=== PATIENT | female | born 1970 | race Caucasian/White ===

== ENCOUNTER 2017-09-03 22:05 | Inpatient (IN) ==
[2017-09-03] MEDS ORDERED: ALBUTEROL 2.5 MG/3 ML NEB RESP TX STA (22:47)
[2017-09-03] MEDS ORDERED: methylPREDNISolone SOD SUC 125 MG/2 ML VIAL IV ONE (22:47)
[2017-09-03] MEDS ORDERED: methylPREDNISolone SOD SUC 125 MG/2 ML VIAL ONE (22:55)
[2017-09-03 23:19] LABS: Basophils # 0.1 10*3/uL (0.0-0.2); Basophils % 0.9 % (0.0-0.8); Eosinophils # 0.2 10*3/uL (0.0-0.87); Eosinophils % 2.5 % (0.00-10.9); Hematocrit 38.6 VOL% (35.7-47.0); Hemoglobin 12.1 GM/DL (12.0-16.0); Immature Granulocytes % 0.5 %; Immature Granulocytes Absolute 0.04 #; Lymphocytes # 1.5 10*3/uL (1.4-4.0); Lymphocytes % 19.3 % (21.3-54.2); Mean Corpuscular HGB Conc 31.3 GM/DL (32-36); Mean Corpuscular Hemoglobin 30 PG (27-34); Mean Corpuscular Volume 94.1 FL (87-102); Monocytes # 0.7 10*3/uL (0.11-0.8); Monocytes % 8.8 % (1.7-12.7); Neutrophils # 5.1 10*3/uL (1.4-7.4); Platelet Count 303 T/CUMM (130-400); Red Cell Distribution Width 13.6 % (9.3-17.3); White Blood Count 7.5 T/CUMM (4-12)
[2017-09-03 23:38] LABS: Calcium 8.3 MG/DL (8.5-10.1); Osmolality,Calculated 276.4 MOS/KG (273-304)
[2017-09-03 23:43] LABS: Troponin I Only 0.069 NG/ML (0.00-0.045)
[2017-09-04] MEDS ORDERED: ALBUTEROL/IPRATROPIUM 3 ML NEB RESP TX PRN (00:54)
[2017-09-04] MEDS ORDERED: ALBUTEROL 2.5 MG/3 ML NEB RESP TX PRN (01:04)
[2017-09-04] MEDS ORDERED: ONDANSETRON 4 MG/2 ML VIAL IV PRN (01:05)
[2017-09-04] MEDS ORDERED: ACETAMINOPHEN 325 MG TABLET PO PRN (01:05)
[2017-09-04] MEDS ORDERED: GLUCAGON 1 MG VIAL IM PRN (01:05)
[2017-09-04] MEDS ORDERED: DEXTROSE 50% 25 GM/50 ML VIAL IV PRN (01:05)
[2017-09-04] MEDS ORDERED: methylPREDNISolone SOD SUC 40 MG/1 ML VIAL IV SCH (01:30)
[2017-09-04] MEDS: ALBUTEROL/IPRATROPIUM 3 ML NEB RESP TX SCH ×4 (02:01→19:11)
[2017-09-04] MEDS: LEVOFLOXACIN INJ 750 MG in PREMIX 1 EACH IV SCH (03:06)
[2017-09-04] MEDS: ENOXAPARIN 40 MG/0.4 ML SYRINGE SUBCUT SCH ×2 (03:06→21:39)
[2017-09-04] MEDS ORDERED: NITROGLYCERIN SL 0.4 MG TABLET SL PRN (03:14)
[2017-09-04 04:56] LABS: Apearance,Urine CLEAR (Clear); Bilirubin,Urine Negative (Negative); Blood, Urine Negative (Negative); Glucose,Urine (UA) Negative (Negative); Ketones,Urine Negative (Negative); Mucus,Urine Occasional /LPF (Occasional); Nitrite,Urine Negative (Negative); Protein,Urine Negative; Squamous Epithelial Cell,Urine Occasional /HPF (0-10); Urine Color Straw (Yellow); Urine Specific Gravity 1.003 (1.001-1.035); Urine Urobilinogen < 2.0 EU/DL (0.2-1.0); WBC,Urine <1 /HPF (0-6)
[2017-09-04] MEDS: methylPREDNISolone SOD SUC 40 MG/1 ML VIAL IV SCH ×2 (06:49→17:00)
[2017-09-04 07:06] LABS: Basophils % 0.8 % (0.0-0.8); Hemoglobin 12.3 GM/DL (12.0-16.0); Immature Granulocytes % 0.6 %; Immature Granulocytes Absolute 0.03 #; Lymphocytes # 0.5 10*3/uL (1.4-4.0); Lymphocytes % 9.3 % (21.3-54.2); Mean Corpuscular HGB Conc 32.4 GM/DL (32-36); Mean Corpuscular Hemoglobin 29 PG (27-34); Mean Corpuscular Volume 90.9 FL (87-102); Mean Platelet Volume 10.7 FL (9.6-12.0); Monocytes # 0.1 10*3/uL (0.11-0.8); Monocytes % 1.1 % (1.7-12.7); Neutrophils # 4.7 10*3/uL (1.4-7.4); Neutrophils % 88.2 % (38.7-73.9); Platelet Count 299 T/CUMM (130-400); Red Blood Count 4.18 MC/CUMM (3.8-5.5); Red Cell Distribution Width 13.6 % (9.3-17.3); White Blood Count 5.3 T/CUMM (4-12)
[2017-09-04 07:37] LABS: Calcium 8.5 MG/DL (8.5-10.1)
[2017-09-04 07:38] LABS: Osmolality,Calculated 280.7 MOS/KG (273-304); Potassium 4.2 MMOL/L (3.5-5.1)
[2017-09-04] MEDS: FENOFIBRATE 145 MG TABLET PO SCH (09:01)
[2017-09-04] MEDS: FUROSEMIDE 20 MG TABLET PO SCH ×2 (09:01→16:51)
[2017-09-04] MEDS: OMEGA 3 ACID ETHYL ESTERS 1 GM CAPSULE PO SCH ×2 (09:01→21:38)
[2017-09-04] MEDS: hydrALAZINE 10 MG TABLET PO SCH ×4 (09:01→21:39)
[2017-09-04] MEDS: PANTOPRAZOLE 40 MG TABLET PO SCH (09:01)
[2017-09-04] MEDS: CALCIUM (CARBONATE)/VITAMIN D 500 MG-200 UNIT TABLET PO SCH (09:01)
[2017-09-04] MEDS: ASPIRIN CHEW 81 MG TABLET PO SCH (09:01)
[2017-09-04] MEDS: CHLORTHALIDONE 25 MG TABLET PO SCH (09:01)
[2017-09-04] MEDS: amLODIPine 5 MG TABLET PO SCH (09:01)
[2017-09-04] MEDS: ALPRAZolam 0.5 MG TABLET PO SCH (09:01)
[2017-09-04] MEDS: GLIMEPIRIDE 4 MG TABLET PO SCH (09:01)
[2017-09-04] MEDS: INSULIN LISPRO 100 UNIT/ML SUBCUT SCH ×4 (09:02→21:39)
[2017-09-04] MEDS ORDERED: ZALEPLON 5 MG CAPSULE PO PRN (11:24)
[2017-09-04] MEDS: NICOTINE 21 MG/24 HR PATCH TRANSDERM SCH ×2 (21:39→22:51)
[2017-09-05] MEDS: ALBUTEROL/IPRATROPIUM 3 ML NEB RESP TX SCH ×4 (00:01→20:10)
[2017-09-05] MEDS: methylPREDNISolone SOD SUC 40 MG/1 ML VIAL IV SCH ×3 (01:28→21:15)
[2017-09-05] MEDS: LEVOFLOXACIN INJ 750 MG in PREMIX 1 EACH IV SCH (04:54)
[2017-09-05] MEDS: INSULIN LISPRO 100 UNIT/ML SUBCUT SCH ×4 (09:14→20:47)
[2017-09-05] MEDS: FUROSEMIDE 20 MG TABLET PO SCH ×2 (09:15→17:08)
[2017-09-05] MEDS: FENOFIBRATE 145 MG TABLET PO SCH (09:15)
[2017-09-05] MEDS: ASPIRIN CHEW 81 MG TABLET PO SCH (09:15)
[2017-09-05] MEDS: OMEGA 3 ACID ETHYL ESTERS 1 GM CAPSULE PO SCH ×2 (09:15→20:47)
[2017-09-05] MEDS: NICOTINE 21 MG/24 HR PATCH TRANSDERM SCH (09:15)
[2017-09-05] MEDS: GLIMEPIRIDE 4 MG TABLET PO SCH (09:15)
[2017-09-05] MEDS: amLODIPine 5 MG TABLET PO SCH (09:15)
[2017-09-05] MEDS: CALCIUM (CARBONATE)/VITAMIN D 500 MG-200 UNIT TABLET PO SCH (09:15)
[2017-09-05] MEDS: CHLORTHALIDONE 25 MG TABLET PO SCH (09:15)
[2017-09-05] MEDS: ALPRAZolam 0.5 MG TABLET PO SCH (09:15)
[2017-09-05] MEDS: hydrALAZINE 10 MG TABLET PO SCH ×4 (09:15→20:47)
[2017-09-05] MEDS: PANTOPRAZOLE 40 MG TABLET PO SCH (09:15)
[2017-09-05] MEDS: ENOXAPARIN 40 MG/0.4 ML SYRINGE SUBCUT SCH (20:47)
[2017-09-06] MEDS: ALBUTEROL/IPRATROPIUM 3 ML NEB RESP TX SCH ×4 (00:40→21:40)
[2017-09-06] MEDS: NICOTINE 21 MG/24 HR PATCH TRANSDERM SCH ×2 (09:12→15:19)
[2017-09-06] MEDS: INSULIN LISPRO 100 UNIT/ML SUBCUT SCH ×4 (09:12→22:09)
[2017-09-06] MEDS: OMEGA 3 ACID ETHYL ESTERS 1 GM CAPSULE PO SCH ×2 (09:12→22:09)
[2017-09-06] MEDS: LEVOFLOXACIN 750 MG TABLET PO SCH (09:12)
[2017-09-06] MEDS: ASPIRIN CHEW 81 MG TABLET PO SCH (09:13)
[2017-09-06] MEDS: GLIMEPIRIDE 4 MG TABLET PO SCH (09:13)
[2017-09-06] MEDS: FENOFIBRATE 145 MG TABLET PO SCH (09:13)
[2017-09-06] MEDS: amLODIPine 5 MG TABLET PO SCH (09:13)
[2017-09-06] MEDS: FUROSEMIDE 20 MG TABLET PO SCH ×2 (09:13→16:44)
[2017-09-06] MEDS: PANTOPRAZOLE 40 MG TABLET PO SCH (09:13)
[2017-09-06] MEDS: CHLORTHALIDONE 25 MG TABLET PO SCH (09:13)
[2017-09-06] MEDS: CALCIUM (CARBONATE)/VITAMIN D 500 MG-200 UNIT TABLET PO SCH (09:13)
[2017-09-06] MEDS: ALPRAZolam 0.5 MG TABLET PO SCH (09:13)
[2017-09-06] MEDS: methylPREDNISolone SOD SUC 40 MG/1 ML VIAL IV SCH ×2 (09:13→22:10)
[2017-09-06] MEDS: hydrALAZINE 10 MG TABLET PO SCH ×4 (09:13→22:10)
[2017-09-06] MEDS ORDERED: BENZONATATE 100 MG CAPSULE PO PRN (16:42)
[2017-09-06] MEDS: ENOXAPARIN 40 MG/0.4 ML SYRINGE SUBCUT SCH (22:10)
[2017-09-07] MEDS: ALBUTEROL/IPRATROPIUM 3 ML NEB RESP TX SCH ×3 (02:57→12:00)
[2017-09-07 08:12] VITALS: BP 155/90
[2017-09-07] MEDS: INSULIN LISPRO 100 UNIT/ML SUBCUT SCH ×2 (08:32→12:00)
[2017-09-07] MEDS: ASPIRIN CHEW 81 MG TABLET PO SCH (08:34)
[2017-09-07] MEDS: hydrALAZINE 10 MG TABLET PO SCH ×2 (08:35→12:00)
[2017-09-07] MEDS: PANTOPRAZOLE 40 MG TABLET PO SCH (08:35)
[2017-09-07] MEDS: FUROSEMIDE 20 MG TABLET PO SCH (08:35)
[2017-09-07] MEDS: ALPRAZolam 0.5 MG TABLET PO SCH (08:35)
[2017-09-07] MEDS: amLODIPine 5 MG TABLET PO SCH (08:35)
[2017-09-07] MEDS: LEVOFLOXACIN 750 MG TABLET PO SCH (08:35)
[2017-09-07] MEDS: CHLORTHALIDONE 25 MG TABLET PO SCH (08:35)
[2017-09-07] MEDS: CALCIUM (CARBONATE)/VITAMIN D 500 MG-200 UNIT TABLET PO SCH (08:35)
[2017-09-07] MEDS: FENOFIBRATE 145 MG TABLET PO SCH (08:35)
[2017-09-07] MEDS: GLIMEPIRIDE 4 MG TABLET PO SCH (08:35)
[2017-09-07] MEDS: OMEGA 3 ACID ETHYL ESTERS 1 GM CAPSULE PO SCH (08:35)
[2017-09-07] MEDS: NICOTINE 21 MG/24 HR PATCH TRANSDERM SCH (08:44)
[2017-09-07] MEDS ORDERED: predniSONE 20 MG TABLET PO SCH (09:00)
== END 2017-09-07 13:12 | disposition home or self-care (01) | DRG 190 ==
LOC: EDUNIT# → EDBD → N.ED 22:05 → SUATTDRO 09-04 00:53 → N.EDINP 09-04 00:53 → N.2E 09-04 01:16
PROVIDERS: ADMIT Family Medicine; ATTEND Internal Medicine

== ENCOUNTER 2018-01-01 09:10 | Inpatient (IN) ==
[2018-01-01 09:41] LABS: Basophils # 0.1 10*3/uL (0.0-0.2); Basophils % 0.9 % (0.0-0.8); Eosinophils # 0.4 10*3/uL (0.0-0.87); Eosinophils % 3.6 % (0.00-10.9); Hematocrit 38.9 VOL% (35.7-47.0); Hemoglobin 12.1 GM/DL (12.0-16.0); Immature Granulocytes % 0.4 %; Immature Granulocytes Absolute 0.04 #; Lymphocytes # 3.1 10*3/uL (1.4-4.0); Lymphocytes % 27.4 % (21.3-54.2); Mean Corpuscular HGB Conc 31.1 GM/DL (32-36); Mean Corpuscular Hemoglobin 27 PG (27-34); Monocytes # 0.7 10*3/uL (0.11-0.8); Monocytes % 6.3 % (1.7-12.7); Neutrophils % 61.4 % (38.7-73.9); Platelet Count 327 T/CUMM (130-400); Red Blood Count 4.42 MC/CUMM (3.8-5.5); Red Cell Distribution Width 15.5 % (9.3-17.3); White Blood Count 11.4 T/CUMM (4-12)
[2018-01-01 09:51] LABS: PT Patient Result 10.4 SECS; Partial Thromboplastin Time 23.7 SECS (0-40)
[2018-01-01 10:19] LABS: Alanine Aminotransferase 23 U/L (13-56); Albumin 2.9 G/DL (3.4-5.0); Alkaline Phosphatase 75 U/L (45-117); Aspartate Amino Transferase 13 U/L (0-37); Bilirubin,Total < 0.39 MG/DL (0.2-1.0); Blood Urea Nitrogen 10 MG/DL (7-18); Calcium 8.5 MG/DL (8.5-10.1); Glucose 191 MG/DL (74-106); Potassium 3.6 MMOL/L (3.5-5.1); Sodium 143 MMOL/L (136-145); Total Protein 6.7 G/DL (6.4-8.3)
[2018-01-01 10:21] LABS: Troponin I Only 0.091 NG/ML (0.00-0.045)
[2018-01-01] MEDS ORDERED: FUROSEMIDE 40 MG/4 ML VIAL IV STA (11:23)
[2018-01-01] MEDS ORDERED: DOCUSATE SODIUM 100 MG CAPSULE PO PRN (12:32)
[2018-01-01] MEDS ORDERED: NICOTINE 21 MG/24 HR PATCH TRANSDERM PRN (12:32)
[2018-01-01] MEDS ORDERED: NITROGLYCERIN SL 0.4 MG TABLET SL PRN (12:37)
[2018-01-01] MEDS ORDERED: MAGNESIUM SULF RIDER 2 GM in PREMIX 1 EACH IV PRN (12:39)
[2018-01-01] MEDS ORDERED: POTASSIUM CHLORIDE RIDER 10 MEQ in PREMIX 1 EACH IV PRN (12:39)
[2018-01-01] MEDS ORDERED: POTASSIUM CHLORIDE RIDER 20 MEQ in PREMIX 1 EACH IV PRN (12:39)
[2018-01-01] MEDS ORDERED: MAGNESIUM SULF RIDER 4 GM in PREMIX 1 EACH IV PRN (12:39)
[2018-01-01] MEDS ORDERED: GLUCAGON 1 MG VIAL IM PRN (12:51)
[2018-01-01] MEDS ORDERED: DEXTROSE 50% 25 GM/50 ML VIAL IV PRN (12:51)
[2018-01-01 13:23] LABS: Risk Ratio 5.92; Thyroid Stimulating Hormone 2.98 uIU/ml (0.358-3.74); VLDL CHOLESTEROL 52.4 MG/DL
[2018-01-01] MEDS ORDERED: ALPRAZolam 0.5 MG TABLET PO PRN (13:30)
[2018-01-01] MEDS ORDERED: ALBUTEROL 2.5 MG/3 ML NEB RESP TX PRN (13:30)
[2018-01-01] MEDS: hydrALAZINE 10 MG TABLET PO SCH ×3 (14:13→20:35)
[2018-01-01] MEDS: ALBUTEROL 2.5 MG/3 ML NEB RESP TX SCH ×2 (14:14→21:50)
[2018-01-01 15:53] LABS: Apearance,Urine CLEAR (Clear); Bilirubin,Urine Negative (Negative); Blood, Urine Negative (Negative); Glucose,Urine (UA) Negative (Negative); Ketones,Urine Negative (Negative); Nitrite,Urine Negative (Negative); Protein,Urine Negative; RBC,Urine <1 /HPF (0-4); Squamous Epithelial Cell,Urine Occasional /HPF (0-10); Urine Color Colorless (Yellow); Urine Specific Gravity 1.003 (1.001-1.035); Urine Urobilinogen < 2.0 EU/DL (0.2-1.0)
[2018-01-01] MEDS: INSULIN LISPRO 100 UNIT/ML SUBCUT SCH ×2 (16:03→21:48)
[2018-01-01] MEDS: FUROSEMIDE 40 MG/4 ML VIAL IV SCH (16:03)
[2018-01-01] MEDS ORDERED: ACETAMINOPHEN 325 MG TABLET PO PRN (16:50)
[2018-01-01] MEDS: ENOXAPARIN 40 MG/0.4 ML SYRINGE SUBCUT SCH (20:35)
[2018-01-01] MEDS: PRAVASTATIN 40 MG TABLET PO SCH (20:35)
[2018-01-01] MEDS: AMITRIPTYLINE 10 MG TABLET PO SCH (20:35)
[2018-01-02 00:58] LABS: Basophils # 0.1 10*3/uL (0.0-0.2); Basophils % 1.3 % (0.0-0.8); Eosinophils # 0.5 10*3/uL (0.0-0.87); Eosinophils % 4.8 % (0.00-10.9); Hematocrit 38.4 VOL% (35.7-47.0); Hemoglobin 11.9 GM/DL (12.0-16.0); Immature Granulocytes % 0.4 %; Immature Granulocytes Absolute 0.04 #; Lymphocytes # 3.6 10*3/uL (1.4-4.0); Lymphocytes % 34.9 % (21.3-54.2); Mean Corpuscular Hemoglobin 27 PG (27-34); Mean Corpuscular Volume 88.1 FL (87-102); Mean Platelet Volume 10.2 FL (9.6-12.0); Monocytes # 0.8 10*3/uL (0.11-0.8); Monocytes % 7.6 % (1.7-12.7); Neutrophils # 5.2 10*3/uL (1.4-7.4); Platelet Count 345 T/CUMM (130-400); Red Blood Count 4.36 MC/CUMM (3.8-5.5); Red Cell Distribution Width 15.4 % (9.3-17.3); White Blood Count 10.2 T/CUMM (4-12)
[2018-01-02 01:27] LABS: Albumin 2.8 G/DL (3.4-5.0); Bilirubin,Total 0.6 MG/DL (0.2-1.0); Calcium 8.5 MG/DL (8.5-10.1); Osmolality,Calculated 289.1 MOS/KG (273-304); Potassium 3.7 MMOL/L (3.5-5.1); Total Protein 6.9 G/DL (6.4-8.3)
[2018-01-02 01:30] LABS: Troponin I Only 0.073 NG/ML (0.00-0.045)
[2018-01-02] MEDS: ALBUTEROL 2.5 MG/3 ML NEB RESP TX SCH ×4 (07:53→18:58)
[2018-01-02] MEDS ORDERED: POTASSIUM CHLORIDE 20 MEQ TABLET PO PRN (08:09)
[2018-01-02] MEDS: LISINOPRIL 20 MG TABLET PO SCH (08:46)
[2018-01-02] MEDS: PANTOPRAZOLE 40 MG TABLET PO SCH (08:46)
[2018-01-02] MEDS: amLODIPine 5 MG TABLET PO SCH (08:46)
[2018-01-02] MEDS: INSULIN LISPRO 100 UNIT/ML SUBCUT SCH ×4 (08:46→21:25)
[2018-01-02] MEDS: GLIMEPIRIDE 4 MG TABLET PO SCH (08:46)
[2018-01-02] MEDS: FUROSEMIDE 40 MG/4 ML VIAL IV SCH ×2 (08:46→16:26)
[2018-01-02] MEDS: FENOFIBRATE 145 MG TABLET PO SCH (08:46)
[2018-01-02] MEDS: hydrALAZINE 10 MG TABLET PO SCH ×4 (08:46→20:33)
[2018-01-02] MEDS: OMEGA 3 ACID ETHYL ESTERS 1 GM CAPSULE PO SCH (08:46)
[2018-01-02] MEDS: ASPIRIN CHEW 81 MG TABLET PO SCH (08:46)
[2018-01-02 09:43] LABS: Troponin I Only 0.061 NG/ML (0.00-0.045)
[2018-01-02] MEDS: PRAVASTATIN 40 MG TABLET PO SCH (20:33)
[2018-01-02] MEDS: AMITRIPTYLINE 10 MG TABLET PO SCH (20:33)
[2018-01-02] MEDS: ENOXAPARIN 40 MG/0.4 ML SYRINGE SUBCUT SCH (20:33)
[2018-01-03 07:03] LABS: Calcium 8.7 MG/DL (8.5-10.1); Osmolality,Calculated 280.4 MOS/KG (273-304); Potassium 3.8 MMOL/L (3.5-5.1)
[2018-01-03] MEDS: ALBUTEROL 2.5 MG/3 ML NEB RESP TX SCH (07:21)
[2018-01-03 08:20] VITALS: BP 151/79
[2018-01-03] MEDS: INSULIN LISPRO 100 UNIT/ML SUBCUT SCH (09:17)
[2018-01-03] MEDS: OMEGA 3 ACID ETHYL ESTERS 1 GM CAPSULE PO SCH (09:19)
[2018-01-03] MEDS: ASPIRIN CHEW 81 MG TABLET PO SCH (09:19)
[2018-01-03] MEDS: LISINOPRIL 20 MG TABLET PO SCH (09:19)
[2018-01-03] MEDS: GLIMEPIRIDE 4 MG TABLET PO SCH (09:19)
[2018-01-03] MEDS: FUROSEMIDE 40 MG/4 ML VIAL IV SCH (09:19)
[2018-01-03] MEDS: FENOFIBRATE 145 MG TABLET PO SCH (09:19)
[2018-01-03] MEDS: PANTOPRAZOLE 40 MG TABLET PO SCH (09:20)
[2018-01-03] MEDS: hydrALAZINE 10 MG TABLET PO SCH (09:20)
[2018-01-03] MEDS: amLODIPine 5 MG TABLET PO SCH (09:20)
== END 2018-01-03 10:38 | disposition home or self-care (01) | DRG 293 ==
LOC: N.ED 09:10 → N.EDINP 12:32 → N.2E 13:14
PROVIDERS: ADMIT Internal Medicine Geriatric Medicine; ATTEND Internal Medicine Geriatric Medicine

== ENCOUNTER 2018-09-17 05:09 | Inpatient (IN) ==
[2018-09-17] MEDS ORDERED: SODIUM CHLORIDE 0.9% 1,000 ML IV STA ×2 (06:37→08:58)
[2018-09-17 07:11] LABS: Basophils # 0.1 10*3/uL (0.0-0.2); Basophils % 0.4 % (0.0-0.8); Hematocrit 41.9 VOL% (35.7-47.0); Hemoglobin 13.6 GM/DL (12.0-16.0); Immature Granulocytes % 0.8 %; Immature Granulocytes Absolute 0.15 #; Lymphocytes # 1.3 10*3/uL (1.4-4.0); Lymphocytes % 6.7 % (21.3-54.2); Mean Corpuscular HGB Conc 32.5 GM/DL (32-36); Mean Corpuscular Hemoglobin 29 PG (27-34); Mean Corpuscular Volume 89.7 FL (87-102); Mean Platelet Volume 10.5 FL (9.6-12.0); Monocytes # 0.9 10*3/uL (0.11-0.8); Monocytes % 4.4 % (1.7-12.7); Neutrophils # 17.5 10*3/uL (1.4-7.4); Neutrophils % 87.7 % (38.7-73.9); Platelet Count 301 T/CUMM (130-400); Red Blood Count 4.67 MC/CUMM (3.8-5.5); Red Cell Distribution Width 14.1 % (9.3-17.3)
[2018-09-17 07:31] LABS: Band Neutrophils 4 % (0-10); Lymphocytes 7 % (20-55); Platelet Estimate Adequate; Segmented Neutrophils 85 % (50-85); Total Cells Counted 100
[2018-09-17 07:32] LABS: Hypochromasia 1+
[2018-09-17 07:36] LABS: Albumin 2.5 G/DL (3.4-5.0); Calcium 8.7 MG/DL (8.5-10.1); Osmolality,Calculated 262.1 MOS/KG (273-304); Potassium 3.6 MMOL/L (3.5-5.1); Total Protein 7.1 G/DL (6.4-8.3)
[2018-09-17] MEDS ORDERED: CLINDAMYCIN INJ 900 MG in PREMIX 1 EACH IV STA (07:45)
[2018-09-17] MEDS ORDERED: LEVOFLOXACIN INJ 500 MG in PREMIX 1 EACH IV STA (07:46)
[2018-09-17] MEDS ORDERED: ONDANSETRON 4 MG/2 ML VIAL IV STA (07:47)
[2018-09-17] MEDS ORDERED: HYDROmorphone 2 MG/1 ML VIAL IV STA (07:47)
[2018-09-17 07:59] LABS: Amorphous Crystals,Urine Occasional /HPF (Few); Apearance,Urine CLOUDY (Clear); Bacteria,Urine Moderate /HPF (Few); Blood, Urine Negative (Negative); Glucose,Urine (UA) 50 mg/dL (Negative); Hyaline Casts,Urine 243 /LPF (0-3); Ketones,Urine 5 mg/dL (Negative); Mucus,Urine Many /LPF (Occasional); Nitrite,Urine Negative (Negative); Protein,Urine 100 MG/DL; Squamous Epithelial Cell,Urine Occasional /HPF (0-10); Urine Color Amber (Yellow); Urine Specific Gravity 1.024 (1.001-1.035)
[2018-09-17 08:00] LABS: Bilirubin,Urine Small mg/dL (Negative)
[2018-09-17 08:12] LABS: Barbiturates Screen,Urine Negative (Negative); Benzodiazepines Screen,Urine Negative (Negative); Cannabinoid Screen,Urine Negative (Negative); Opiate Screen,Urine Negative (Negative); Phencyclidine Screen,Urine Negative (Negative)
[2018-09-17] MEDS ORDERED: NOREPINEPHRINE 8 MG in SODIUM CHLORIDE 0.9% 242 ML IV PRN ×2 (08:57→09:55)
[2018-09-17] MEDS ORDERED: LIDOCAINE 1%/EPI INJ 20 ML VIAL ONE (09:13)
[2018-09-17] MEDS ORDERED: SUGAMMADEX 200 MG/2 ML VIAL IV ONE (10:41)
[2018-09-17] MEDS ORDERED: fentaNYL 100 MCG/2 ML VIAL ONE (11:03)
[2018-09-17] MEDS ORDERED: ALBUMIN 5% 12.5 GM/250 ML VIAL IV ONE (11:03)
[2018-09-17] MEDS ORDERED: ETOMIDATE 40 MG/20 ML VIAL IV ONE (11:03)
[2018-09-17] MEDS ORDERED: SEVOFLURANE 1 UNIT/15 MINUTE INH ONE (11:03)
[2018-09-17] MEDS ORDERED: ROCURONIUM 100 MG/10 ML VIAL IV ONE (11:04)
[2018-09-17] MEDS ORDERED: PHENYLEPHRINE 1 MG/10 ML SYRINGE IV ONE (11:04)
[2018-09-17] MEDS ORDERED: SUCCINYLCHOLINE 200 MG/10 ML VIAL ONE (11:04)
[2018-09-17] MEDS ORDERED: HYDROmorphone 2 MG/1 ML VIAL IV PRN (11:14)
[2018-09-17] MEDS ORDERED: ONDANSETRON 4 MG/2 ML VIAL IV PRN ×2 (11:14→11:37)
[2018-09-17] MEDS ORDERED: HYDROmorphone 2 MG/1 ML VIAL ONE (11:29)
[2018-09-17] MEDS ORDERED: ONDANSETRON 4 MG/2 ML VIAL ONE (11:30)
[2018-09-17] MEDS ORDERED: ACETAMINOPHEN 325 MG TABLET PO PRN (11:37)
[2018-09-17] MEDS ORDERED: ALBUTEROL/IPRATROPIUM 3 ML NEB RESP TX PRN (11:37)
[2018-09-17] MEDS ORDERED: BISACODYL 5 MG TABLET PO PRN (11:37)
[2018-09-17] MEDS ORDERED: NITROGLYCERIN SL 0.4 MG TABLET SL PRN (11:43)
[2018-09-17] MEDS ORDERED: Alprazolam [Alprazolam Xr] 1 MG PO PRN (11:43)
[2018-09-17] MEDS ORDERED: GLUCAGON 1 MG VIAL IM PRN (11:48)
[2018-09-17] MEDS ORDERED: amLODIPine 5 MG TABLET PO SCH (12:00)
[2018-09-17] MEDS ORDERED: DEXTROSE 5% NACL 0.45% 1,000 ML IV SCH (12:00)
[2018-09-17] MEDS ORDERED: LORazepam 2 MG/1 ML VIAL IV ONE (13:33)
[2018-09-17] MEDS: SODIUM CHLORIDE 0.9% 1,000 ML IV SCH (13:44)
[2018-09-17] MEDS ORDERED: CIPROFLOXACIN 400 MG/200 ML PREMIX IV ONE (14:07)
[2018-09-17] MEDS: CIPROFLOXACIN INJ 400 MG in PREMIX 1 EACH IV SCH (14:13)
[2018-09-17] MEDS: INSULIN LISPRO 100 UNIT/ML SUBCUT SCH ×2 (14:55→16:44)
[2018-09-17] MEDS: PANTOPRAZOLE 40 MG TABLET PO SCH (14:56)
[2018-09-17] MEDS: hydrALAZINE 10 MG TABLET PO SCH ×3 (15:42→20:20)
[2018-09-17] MEDS: metroNIDAZOLE INJ 500 MG in PREMIX 1 EACH IV SCH ×2 (17:21→20:20)
[2018-09-17] MEDS: ALBUTEROL 2.5 MG/3 ML NEB RESP TX SCH ×2 (17:46→19:00)
[2018-09-17] MEDS ORDERED: ALBUTEROL 2.5 MG/3 ML NEB RESP TX PRN (19:00)
[2018-09-17] MEDS: AMITRIPTYLINE 10 MG TABLET PO SCH (20:20)
[2018-09-17] MEDS: MORPHINE 4 MG/1 ML VIAL IV PRN (23:28)
[2018-09-17] MEDS: ONDANSETRON 4 MG/2 ML VIAL IV PRN (23:31)
[2018-09-18] MEDS: MORPHINE 4 MG/1 ML VIAL IV PRN ×4 (01:29→22:39)
[2018-09-18] MEDS: CIPROFLOXACIN INJ 400 MG in PREMIX 1 EACH IV SCH ×2 (01:30→14:37)
[2018-09-18] MEDS: metroNIDAZOLE INJ 500 MG in PREMIX 1 EACH IV SCH ×4 (01:45→20:33)
[2018-09-18] MEDS: SODIUM CHLORIDE 0.9% 1,000 ML IV SCH ×3 (03:12→18:25)
[2018-09-18 05:18] LABS: Basophils % 0.2 % (0.0-0.8); Eosinophils % 0.2 % (0.00-10.9); Hematocrit 36.7 VOL% (35.7-47.0); Hemoglobin 11.3 GM/DL (12.0-16.0); Immature Granulocytes % 1.2 %; Immature Granulocytes Absolute 0.24 #; Lymphocytes # 1.2 10*3/uL (1.4-4.0); Lymphocytes % 6.3 % (21.3-54.2); Mean Corpuscular HGB Conc 30.8 GM/DL (32-36); Mean Corpuscular Hemoglobin 29 PG (27-34); Mean Corpuscular Volume 93.1 FL (87-102); Mean Platelet Volume 11.2 FL (9.6-12.0); Monocytes # 0.8 10*3/uL (0.11-0.8); Monocytes % 3.9 % (1.7-12.7); Neutrophils # 17.2 10*3/uL (1.4-7.4); Neutrophils % 88.2 % (38.7-73.9); Platelet Count 233 T/CUMM (130-400); Red Blood Count 3.94 MC/CUMM (3.8-5.5); Red Cell Distribution Width 13.9 % (9.3-17.3); White Blood Count 19.5 T/CUMM (4-12)
[2018-09-18] MEDS: ENOXAPARIN 40 MG/0.4 ML SYRINGE SUBCUT SCH (05:27)
[2018-09-18 05:32] LABS: Albumin 1.9 G/DL (3.4-5.0); Bilirubin,Total 0.7 MG/DL (0.2-1.0); Osmolality,Calculated 274.4 MOS/KG (273-304); Potassium 3.4 MMOL/L (3.5-5.1); Total Protein 5.7 G/DL (6.4-8.3)
[2018-09-18 05:53] LABS: Band Neutrophils 3 % (0-10); Eosinophils 1 % (0-10); Lymphocytes 4 % (20-55); Microcytosis 1+; Platelet Estimate Normal; Segmented Neutrophils 89 % (50-85); Total Cells Counted 100
[2018-09-18] MEDS: ALBUTEROL 2.5 MG/3 ML NEB RESP TX SCH ×3 (07:15→20:15)
[2018-09-18] MEDS ORDERED: POTASSIUM CHLORIDE 20 MEQ TABLET PO ONE (08:46)
[2018-09-18] MEDS ORDERED: LACTATED RINGERS 1,000 ML IV ONE (08:46)
[2018-09-18] MEDS ORDERED: SIMVASTATIN 20 MG TABLET PO SCH (09:00)
[2018-09-18] MEDS: PANTOPRAZOLE 40 MG TABLET PO SCH (09:11)
[2018-09-18] MEDS: FENOFIBRATE 145 MG TABLET PO SCH (09:11)
[2018-09-18] MEDS: ASPIRIN CHEW 81 MG TABLET PO SCH (09:11)
[2018-09-18] MEDS: GLIMEPIRIDE 4 MG TABLET PO SCH (09:11)
[2018-09-18] MEDS: INSULIN LISPRO 100 UNIT/ML SUBCUT SCH ×3 (09:12→17:34)
[2018-09-18] MEDS: CARVEDILOL 3.125 MG TABLET PO SCH ×2 (14:37→20:33)
[2018-09-18] MEDS: AMITRIPTYLINE 10 MG TABLET PO SCH (20:33)
[2018-09-19] MEDS: CARVEDILOL 3.125 MG TABLET PO SCH ×4 (01:20→21:23)
[2018-09-19] MEDS: metroNIDAZOLE INJ 500 MG in PREMIX 1 EACH IV SCH ×4 (01:20→22:19)
[2018-09-19] MEDS: CIPROFLOXACIN INJ 400 MG in PREMIX 1 EACH IV SCH ×2 (02:41→14:40)
[2018-09-19] MEDS: SODIUM CHLORIDE 0.9% 1,000 ML IV SCH ×4 (03:34→22:30)
[2018-09-19] MEDS: ENOXAPARIN 40 MG/0.4 ML SYRINGE SUBCUT SCH (05:50)
[2018-09-19 06:21] LABS: Basophils % 0.2 % (0.0-0.8); Eosinophils # 0.2 10*3/uL (0.0-0.87); Eosinophils % 1.1 % (0.00-10.9); Hematocrit 30.9 VOL% (35.7-47.0); Hemoglobin 9.5 GM/DL (12.0-16.0); Immature Granulocytes Absolute 0.13 #; Lymphocytes % 7.4 % (21.3-54.2); Mean Corpuscular HGB Conc 30.7 GM/DL (32-36); Mean Corpuscular Hemoglobin 29 PG (27-34); Mean Corpuscular Volume 93.4 FL (87-102); Mean Platelet Volume 11.2 FL (9.6-12.0); Monocytes # 0.8 10*3/uL (0.11-0.8); Monocytes % 6.2 % (1.7-12.7); Neutrophils # 11.2 10*3/uL (1.4-7.4); Neutrophils % 84.1 % (38.7-73.9); Platelet Count 214 T/CUMM (130-400); Red Blood Count 3.31 MC/CUMM (3.8-5.5); White Blood Count 13.3 T/CUMM (4-12)
[2018-09-19 06:44] LABS: Band Neutrophils 1 % (0-10); Lymphocytes 7 % (20-55); Platelet Estimate Normal; Polychromasia Few; Segmented Neutrophils 91 % (50-85); Total Cells Counted 100
[2018-09-19 06:48] LABS: Calcium 7.6 MG/DL (8.5-10.1); Osmolality,Calculated 272.5 MOS/KG (273-304); Potassium 3.7 MMOL/L (3.5-5.1)
[2018-09-19] MEDS: ALBUTEROL 2.5 MG/3 ML NEB RESP TX SCH ×3 (07:22→19:20)
[2018-09-19] MEDS: INSULIN LISPRO 100 UNIT/ML SUBCUT SCH ×3 (08:46→17:01)
[2018-09-19] MEDS ORDERED: MAGNESIUM SULF RIDER 4 GM in PREMIX 1 EACH IV PRN (09:23)
[2018-09-19] MEDS: FENOFIBRATE 145 MG TABLET PO SCH (10:00)
[2018-09-19] MEDS: PANTOPRAZOLE 40 MG TABLET PO SCH (10:00)
[2018-09-19] MEDS: ASPIRIN CHEW 81 MG TABLET PO SCH (10:00)
[2018-09-19] MEDS: GLIMEPIRIDE 4 MG TABLET PO SCH (10:00)
[2018-09-19] MEDS: MAGNESIUM SULF RIDER 2 GM in PREMIX 1 EACH IV PRN (18:16)
[2018-09-19] MEDS: AMITRIPTYLINE 10 MG TABLET PO SCH (22:23)
[2018-09-19] MEDS: SIMVASTATIN 20 MG TABLET PO SCH (22:23)
[2018-09-20] MEDS: CARVEDILOL 3.125 MG TABLET PO SCH ×5 (02:10→21:11)
[2018-09-20] MEDS: CIPROFLOXACIN INJ 400 MG in PREMIX 1 EACH IV SCH ×2 (02:25→13:25)
[2018-09-20] MEDS: metroNIDAZOLE INJ 500 MG in PREMIX 1 EACH IV SCH ×4 (03:11→21:04)
[2018-09-20] MEDS: MAGNESIUM SULF RIDER 2 GM in PREMIX 1 EACH IV PRN (03:13)
[2018-09-20 06:48] LABS: Basophils % 0.2 % (0.0-0.8); Eosinophils # 0.2 10*3/uL (0.0-0.87); Eosinophils % 1.6 % (0.00-10.9); Hemoglobin 9.8 GM/DL (12.0-16.0); Immature Granulocytes % 0.8 %; Immature Granulocytes Absolute 0.08 #; Lymphocytes # 1.2 10*3/uL (1.4-4.0); Lymphocytes % 11.4 % (21.3-54.2); Mean Corpuscular HGB Conc 30.6 GM/DL (32-36); Mean Corpuscular Hemoglobin 29 PG (27-34); Mean Corpuscular Volume 93.6 FL (87-102); Mean Platelet Volume 11.6 FL (9.6-12.0); Monocytes % 10.1 % (1.7-12.7); NRBC # 0.02 10*3/uL; Neutrophils # 7.7 10*3/uL (1.4-7.4); Neutrophils % 75.9 % (38.7-73.9); Platelet Count 192 T/CUMM (130-400); Red Blood Count 3.42 MC/CUMM (3.8-5.5); Red Cell Distribution Width 14.4 % (9.3-17.3); White Blood Count 10.2 T/CUMM (4-12)
[2018-09-20] MEDS: ALBUTEROL 2.5 MG/3 ML NEB RESP TX SCH ×3 (07:05→19:58)
[2018-09-20 07:20] LABS: Calcium 7.8 MG/DL (8.5-10.1); Osmolality,Calculated 266.7 MOS/KG (273-304); Potassium 3.7 MMOL/L (3.5-5.1)
[2018-09-20 07:24] LABS: Anisocytosis 1+; Band Neutrophils 16 % (0-10); Eosinophils 3 % (0-10); Giant Platelets Few; Lymphocytes 11 % (20-55); Macrocytosis 1+; Nucleated Red Blood Cells 1 (0-5); Platelet Estimate Normal; Polychromasia Slight; Segmented Neutrophils 61 % (50-85); Total Cells Counted 100
[2018-09-20] MEDS: DEXTROSE 50% 25 GM/50 ML VIAL IV PRN ×4 (07:35→20:27)
[2018-09-20] MEDS: INSULIN LISPRO 100 UNIT/ML SUBCUT SCH ×2 (09:22→11:51)
[2018-09-20] MEDS: PANTOPRAZOLE 40 MG TABLET PO SCH (09:31)
[2018-09-20] MEDS: ASPIRIN CHEW 81 MG TABLET PO SCH (09:31)
[2018-09-20] MEDS: FENOFIBRATE 145 MG TABLET PO SCH (09:31)
[2018-09-20] MEDS: ENOXAPARIN 40 MG/0.4 ML SYRINGE SUBCUT SCH (09:34)
[2018-09-20] MEDS: GLIMEPIRIDE 4 MG TABLET PO SCH (10:42)
[2018-09-20] MEDS: SODIUM CHLORIDE 0.9% 1,000 ML IV SCH (12:01)
[2018-09-20] MEDS: DEXTROSE 5% NACL 0.9% 1,000 ML IV SCH (12:29)
[2018-09-20] MEDS ORDERED: hydrALAZINE 20 MG/1 ML VIAL IV PRN (14:31)
[2018-09-20] MEDS ORDERED: NICOTINE 14 MG/24 HR PATCH TRANSDERM PRN (14:32)
[2018-09-20] MEDS: SIMVASTATIN 20 MG TABLET PO SCH ×2 (21:05→21:13)
[2018-09-20] MEDS: AMITRIPTYLINE 10 MG TABLET PO SCH ×2 (21:05→21:13)
[2018-09-21] MEDS: DEXTROSE 50% 25 GM/50 ML VIAL IV PRN ×2 (00:38→05:01)
[2018-09-21] MEDS: CIPROFLOXACIN INJ 400 MG in PREMIX 1 EACH IV SCH (01:05)
[2018-09-21] MEDS: CARVEDILOL 3.125 MG TABLET PO SCH ×4 (02:11→22:03)
[2018-09-21] MEDS: metroNIDAZOLE INJ 500 MG in PREMIX 1 EACH IV SCH ×4 (02:11→22:10)
[2018-09-21] MEDS: ONDANSETRON 4 MG/2 ML VIAL IV PRN (04:59)
[2018-09-21 05:53] LABS: Basophils % 0.3 % (0.0-0.8); Eosinophils # 0.1 10*3/uL (0.0-0.87); Eosinophils % 0.5 % (0.00-10.9); Hematocrit 31.8 VOL% (35.7-47.0); Hemoglobin 9.8 GM/DL (12.0-16.0); Immature Granulocytes % 1.1 %; Immature Granulocytes Absolute 0.17 #; Lymphocytes # 1.2 10*3/uL (1.4-4.0); Lymphocytes % 7.5 % (21.3-54.2); Mean Corpuscular HGB Conc 30.8 GM/DL (32-36); Mean Corpuscular Hemoglobin 28 PG (27-34); Mean Corpuscular Volume 91.6 FL (87-102); Mean Platelet Volume 11.3 FL (9.6-12.0); Monocytes # 1.4 10*3/uL (0.11-0.8); Monocytes % 8.8 % (1.7-12.7); NRBC # 0.03 10*3/uL; Neutrophils # 12.7 10*3/uL (1.4-7.4); Neutrophils % 81.8 % (38.7-73.9); Platelet Count 282 T/CUMM (130-400); Red Blood Count 3.47 MC/CUMM (3.8-5.5); Red Cell Distribution Width 14.3 % (9.3-17.3); White Blood Count 15.5 T/CUMM (4-12)
[2018-09-21 06:18] LABS: Calcium 7.7 MG/DL (8.5-10.1); Osmolality,Calculated 271.5 MOS/KG (273-304); Potassium 3.5 MMOL/L (3.5-5.1)
[2018-09-21 06:38] LABS: Band Neutrophils 1 % (0-10); Eosinophils 1 % (0-10); Hypochromasia 1+; Lymphocytes 7 % (20-55); Microcytosis 1+; Segmented Neutrophils 82 % (50-85); Total Cells Counted 100
[2018-09-21 06:39] LABS: Platelet Estimate Normal
[2018-09-21] MEDS: ENOXAPARIN 40 MG/0.4 ML SYRINGE SUBCUT SCH (07:13)
[2018-09-21] MEDS: ALBUTEROL 2.5 MG/3 ML NEB RESP TX SCH ×3 (07:44→21:00)
[2018-09-21 09:00] LABS: ABG Base Excess -7.5 MMOL/L (-2.5-2.5); ABG HCO3 18.3 MMOL/L (20-26); ABG Oxygen Saturation 92.8 % (95-100); ABG PCO2 30.1 MM HG (35-48); ABG PH 7.356 (7.35-7.45); ABG PO2 69.4 MM HG (80-95); ABG TCO2 14.9 MMOL/L (23-27)
[2018-09-21] MEDS: PANTOPRAZOLE 40 MG VIAL IV SCH (09:49)
[2018-09-21] MEDS: FENOFIBRATE 145 MG TABLET PO SCH (09:51)
[2018-09-21] MEDS: ASPIRIN CHEW 81 MG TABLET PO SCH (09:51)
[2018-09-21] MEDS: MEROPENEM 1,000 MG in SYRINGE 1 EACH IV SCH ×2 (12:58→22:09)
[2018-09-21] MEDS: AMITRIPTYLINE 10 MG TABLET PO SCH (22:03)
[2018-09-21] MEDS: SIMVASTATIN 20 MG TABLET PO SCH (22:03)
[2018-09-22] MEDS: CARVEDILOL 3.125 MG TABLET PO SCH ×4 (01:15→18:08)
[2018-09-22] MEDS: DEXTROSE 5% NACL 0.9% 1,000 ML IV SCH ×2 (02:54→22:47)
[2018-09-22] MEDS: metroNIDAZOLE INJ 500 MG in PREMIX 1 EACH IV SCH ×4 (02:59→22:00)
[2018-09-22] MEDS: MEROPENEM 1,000 MG in SYRINGE 1 EACH IV SCH ×3 (04:30→22:00)
[2018-09-22] MEDS: ENOXAPARIN 40 MG/0.4 ML SYRINGE SUBCUT SCH (05:04)
[2018-09-22 06:10] LABS: Basophils % 0.2 % (0.0-0.8); Eosinophils % 0.1 % (0.00-10.9); Hematocrit 31.9 VOL% (35.7-47.0); Hemoglobin 10.4 GM/DL (12.0-16.0); Immature Granulocytes % 1.7 %; Immature Granulocytes Absolute 0.32 #; Lymphocytes # 1.9 10*3/uL (1.4-4.0); Lymphocytes % 10.3 % (21.3-54.2); Mean Corpuscular HGB Conc 32.6 GM/DL (32-36); Mean Corpuscular Hemoglobin 29 PG (27-34); Mean Corpuscular Volume 90.1 FL (87-102); Mean Platelet Volume 11.6 FL (9.6-12.0); Monocytes # 1.6 10*3/uL (0.11-0.8); Monocytes % 8.5 % (1.7-12.7); Neutrophils # 14.7 10*3/uL (1.4-7.4); Neutrophils % 79.2 % (38.7-73.9); Platelet Count 377 T/CUMM (130-400); Red Blood Count 3.54 MC/CUMM (3.8-5.5); Red Cell Distribution Width 14.1 % (9.3-17.3); White Blood Count 18.6 T/CUMM (4-12)
[2018-09-22 06:23] LABS: Calcium 8.3 MG/DL (8.5-10.1); Osmolality,Calculated 281.7 MOS/KG (273-304); Potassium 3.7 MMOL/L (3.5-5.1)
[2018-09-22 07:18] LABS: Band Neutrophils 8 % (0-10); Lymphocytes 12 % (20-55); Platelet Estimate Normal; Segmented Neutrophils 73 % (50-85); Total Cells Counted 100
[2018-09-22 07:21] LABS: Anisocytosis 1+; Poikilocytosis Slight
[2018-09-22] MEDS: ALBUTEROL 2.5 MG/3 ML NEB RESP TX SCH ×3 (07:35→19:54)
[2018-09-22] MEDS: ASPIRIN CHEW 81 MG TABLET PO SCH (10:05)
[2018-09-22] MEDS: PANTOPRAZOLE 40 MG VIAL IV SCH (10:08)
[2018-09-22] MEDS: FENOFIBRATE 145 MG TABLET PO SCH (10:08)
[2018-09-22] MEDS ORDERED: GLUCAGON 1 MG VIAL IM PRN (10:37)
[2018-09-22] MEDS ORDERED: DEXTROSE 50% 25 GM/50 ML VIAL IV PRN (10:37)
[2018-09-22] MEDS: LISINOPRIL 2.5 MG TABLET PO SCH (13:49)
[2018-09-22] MEDS: INSULIN REGULAR 100 UNIT/ML SUBCUT SCH ×3 (13:58→22:13)
[2018-09-22] MEDS: DEXTROSE 50% 25 GM/50 ML VIAL IV PRN (21:59)
[2018-09-22] MEDS: SIMVASTATIN 20 MG TABLET PO SCH (22:00)
[2018-09-22] MEDS: AMITRIPTYLINE 10 MG TABLET PO SCH (22:00)
[2018-09-23] MEDS: metroNIDAZOLE INJ 500 MG in PREMIX 1 EACH IV SCH ×4 (02:36→22:05)
[2018-09-23] MEDS: CARVEDILOL 3.125 MG TABLET PO SCH ×5 (02:36→22:05)
[2018-09-23] MEDS: MEROPENEM 1,000 MG in SYRINGE 1 EACH IV SCH ×3 (04:56→22:05)
[2018-09-23] MEDS: ENOXAPARIN 40 MG/0.4 ML SYRINGE SUBCUT SCH (04:56)
[2018-09-23 05:36] LABS: Basophils # 0.1 10*3/uL (0.0-0.2); Basophils % 0.3 % (0.0-0.8); Eosinophils # 0.3 10*3/uL (0.0-0.87); Eosinophils % 1.8 % (0.00-10.9); Hematocrit 31.5 VOL% (35.7-47.0); Hemoglobin 9.9 GM/DL (12.0-16.0); Immature Granulocytes % 2.7 %; Immature Granulocytes Absolute 0.44 #; Lymphocytes # 2.6 10*3/uL (1.4-4.0); Lymphocytes % 15.8 % (21.3-54.2); Mean Corpuscular HGB Conc 31.4 GM/DL (32-36); Mean Corpuscular Hemoglobin 28 PG (27-34); Mean Platelet Volume 10.9 FL (9.6-12.0); Monocytes # 1.7 10*3/uL (0.11-0.8); Monocytes % 10.4 % (1.7-12.7); NRBC # 0.02 10*3/uL; Neutrophils # 11.4 10*3/uL (1.4-7.4); Platelet Count 507 T/CUMM (130-400); Red Cell Distribution Width 14.6 % (9.3-17.3); White Blood Count 16.5 T/CUMM (4-12)
[2018-09-23 05:52] LABS: Calcium 7.8 MG/DL (8.5-10.1); Osmolality,Calculated 281.4 MOS/KG (273-304); Potassium 3.3 MMOL/L (3.5-5.1)
[2018-09-23 06:21] LABS: Anisocytosis 1+; Macrocytosis 1+; Platelet Estimate Increased
[2018-09-23] MEDS: ALBUTEROL 2.5 MG/3 ML NEB RESP TX SCH ×3 (07:41→19:55)
[2018-09-23] MEDS ORDERED: POTASSIUM CHLORIDE 20 MEQ TABLET PO ONE (08:18)
[2018-09-23] MEDS: INSULIN REGULAR 100 UNIT/ML SUBCUT SCH ×4 (08:34→21:35)
[2018-09-23] MEDS: ASPIRIN CHEW 81 MG TABLET PO SCH (08:45)
[2018-09-23] MEDS: LISINOPRIL 2.5 MG TABLET PO SCH (08:45)
[2018-09-23] MEDS: FENOFIBRATE 145 MG TABLET PO SCH (08:45)
[2018-09-23] MEDS: PANTOPRAZOLE 40 MG TABLET PO SCH (08:45)
[2018-09-23] MEDS: AMITRIPTYLINE 10 MG TABLET PO SCH (22:05)
[2018-09-23] MEDS: SIMVASTATIN 20 MG TABLET PO SCH (22:05)
[2018-09-24] MEDS: CARVEDILOL 3.125 MG TABLET PO SCH ×2 (00:36→06:00)
[2018-09-24] MEDS: metroNIDAZOLE INJ 500 MG in PREMIX 1 EACH IV SCH ×2 (02:13→09:31)
[2018-09-24] MEDS: MEROPENEM 1,000 MG in SYRINGE 1 EACH IV SCH (04:44)
[2018-09-24 04:56] LABS: Basophils # 0.1 10*3/uL (0.0-0.2); Basophils % 0.5 % (0.0-0.8); Eosinophils # 0.3 10*3/uL (0.0-0.87); Eosinophils % 1.9 % (0.00-10.9); Hematocrit 30.1 VOL% (35.7-47.0); Hemoglobin 9.4 GM/DL (12.0-16.0); Immature Granulocytes % 2.5 %; Immature Granulocytes Absolute 0.35 #; Lymphocytes # 2.9 10*3/uL (1.4-4.0); Lymphocytes % 20.6 % (21.3-54.2); Mean Corpuscular HGB Conc 31.2 GM/DL (32-36); Mean Corpuscular Hemoglobin 28 PG (27-34); Mean Corpuscular Volume 90.4 FL (87-102); Mean Platelet Volume 10.9 FL (9.6-12.0); Monocytes # 1.5 10*3/uL (0.11-0.8); Monocytes % 10.6 % (1.7-12.7); Neutrophils # 8.9 10*3/uL (1.4-7.4); Neutrophils % 63.9 % (38.7-73.9); Platelet Count 574 T/CUMM (130-400); Red Blood Count 3.33 MC/CUMM (3.8-5.5); Red Cell Distribution Width 14.7 % (9.3-17.3)
[2018-09-24 05:22] LABS: Eosinophils 1 % (0-10); Hypochromasia 1+; Lymphocytes 18 % (20-55); Platelet Estimate Increased; Segmented Neutrophils 69 % (50-85); Total Cells Counted 100
[2018-09-24 05:23] LABS: Macrocytosis Slight; Polychromasia Slight
[2018-09-24 05:27] LABS: Bilirubin,Total 0.4 MG/DL (0.2-1.0); Calcium 7.7 MG/DL (8.5-10.1); Total Protein 5.6 G/DL (6.4-8.3)
[2018-09-24] MEDS: ENOXAPARIN 40 MG/0.4 ML SYRINGE SUBCUT SCH (05:55)
[2018-09-24] MEDS: ALBUTEROL 2.5 MG/3 ML NEB RESP TX SCH (07:11)
[2018-09-24] MEDS ORDERED: GLIMEPIRIDE 2 MG TABLET PO SCH (08:00)
[2018-09-24] MEDS ORDERED: LISINOPRIL 5 MG TABLET PO SCH (09:00)
[2018-09-24] MEDS: INSULIN REGULAR 100 UNIT/ML SUBCUT SCH (09:25)
[2018-09-24] MEDS: FENOFIBRATE 145 MG TABLET PO SCH (09:30)
[2018-09-24] MEDS ORDERED: CARVEDILOL 12.5 MG TABLET PO SCH (09:30)
[2018-09-24] MEDS: ASPIRIN CHEW 81 MG TABLET PO SCH (09:31)
[2018-09-24] MEDS: PANTOPRAZOLE 40 MG TABLET PO SCH (09:31)
[2018-09-24 13:26] VITALS: BP 145/63
== END 2018-09-24 11:09 | disposition home or self-care (01) | DRG 853 ==
LOC: N.ED 05:09 → N.SDS 09:19 → N.ED 09:20 → N.5E 11:37
PROVIDERS: ADMIT Surgery; ATTEND Surgery

== ENCOUNTER 2018-09-24 21:32 | Inpatient (IN) ==
[2018-09-24] MEDS ORDERED: FUROSEMIDE 100 MG/10 ML VIAL IV STA (22:58)
[2018-09-24] MEDS ORDERED: ALBUTEROL/IPRATROPIUM 3 ML NEB RESP TX STA (22:58)
[2018-09-24] MEDS ORDERED: ONDANSETRON 4 MG/2 ML VIAL IV STA (22:58)
[2018-09-24] MEDS ORDERED: FUROSEMIDE 40 MG/4 ML VIAL ONE (23:41)
[2018-09-25 00:06] LABS: Basophils # 0.1 10*3/uL (0.0-0.2); Basophils % 0.5 % (0.0-0.8); Eosinophils # 0.4 10*3/uL (0.0-0.87); Eosinophils % 2.3 % (0.00-10.9); Hemoglobin 10.4 GM/DL (12.0-16.0); Immature Granulocytes % 3.8 %; Immature Granulocytes Absolute 0.58 #; Lymphocytes # 3.1 10*3/uL (1.4-4.0); Lymphocytes % 20.3 % (21.3-54.2); Mean Corpuscular HGB Conc 31.5 GM/DL (32-36); Mean Corpuscular Hemoglobin 28 PG (27-34); Mean Corpuscular Volume 89.9 FL (87-102); Mean Platelet Volume 10.2 FL (9.6-12.0); Monocytes # 1.3 10*3/uL (0.11-0.8); Monocytes % 8.5 % (1.7-12.7); Neutrophils # 9.9 10*3/uL (1.4-7.4); Neutrophils % 64.6 % (38.7-73.9); Platelet Count 719 T/CUMM (130-400); Red Blood Count 3.67 MC/CUMM (3.8-5.5); White Blood Count 15.3 T/CUMM (4-12)
[2018-09-25 00:10] LABS: INR 1.1; PT Patient Result 11.4 SECS
[2018-09-25 00:25] LABS: Band Neutrophils 1 % (0-10); Eosinophils 1 % (0-10); Lymphocytes 19 % (20-55); Segmented Neutrophils 75 % (50-85); Total Cells Counted 100
[2018-09-25 00:26] LABS: Anisocytosis 1+; Hypochromasia Slight
[2018-09-25 00:27] LABS: Platelet Estimate Increased
[2018-09-25 00:57] LABS: Alanine Aminotransferase 14 U/L (13-56); Albumin 2.2 G/DL (3.4-5.0); Alkaline Phosphatase 147 U/L (45-117); Aspartate Amino Transferase 11 U/L (0-37); Bilirubin,Total < 0.39 MG/DL (0.2-1.0); Blood Urea Nitrogen 11 MG/DL (7-18); Calcium 8.2 MG/DL (8.5-10.1); Glucose 116 MG/DL (74-106); Osmolality,Calculated 285.8 MOS/KG (273-304); Sodium 144 MMOL/L (136-145); Total Protein 6.2 G/DL (6.4-8.3)
[2018-09-25] MEDS ORDERED: MAGNESIUM SULF RIDER 2 GM in PREMIX 1 EACH IV STA (01:13)
[2018-09-25] MEDS ORDERED: ENOXAPARIN 40 MG/0.4 ML SYRINGE SUBCUT STA (01:14)
[2018-09-25] MEDS ORDERED: LEVOFLOXACIN INJ 750 MG in PREMIX 1 EACH IV STA (01:25)
[2018-09-25] MEDS ORDERED: MAGNESIUM SULF RIDER 50 ML IV ONE (01:32)
[2018-09-25] MEDS ORDERED: MORPHINE 4 MG/1 ML VIAL IV PRN (02:28)
[2018-09-25] MEDS ORDERED: NITROGLYCERIN SL 0.4 MG TABLET SL PRN (02:28)
[2018-09-25] MEDS ORDERED: ONDANSETRON 4 MG/2 ML VIAL IV PRN (02:28)
[2018-09-25] MEDS ORDERED: ALBUTEROL 2.5 MG/3 ML NEB RESP TX PRN (02:28)
[2018-09-25] MEDS ORDERED: ALPRAZOLAM 1 MG PO PRN (02:28)
[2018-09-25] MEDS ORDERED: GLUCAGON 1 MG VIAL IM PRN (02:28)
[2018-09-25] MEDS ORDERED: DEXTROSE 50% 25 GM/50 ML SYRINGE IV PRN (02:28)
[2018-09-25] MEDS ORDERED: ACETAMINOPHEN 325 MG TABLET PO PRN (02:28)
[2018-09-25 02:38] LABS: Apearance,Urine Slightly Hazy (Clear); Bacteria,Urine Occasional /HPF (Few); Bilirubin,Urine Negative (Negative); Blood, Urine Negative (Negative); Glucose,Urine (UA) Negative (Negative); Ketones,Urine Negative (Negative); Mucus,Urine Occasional /LPF (Occasional); Nitrite,Urine Negative (Negative); Protein,Urine Negative; RBC,Urine 1 /HPF (0-4); Squamous Epithelial Cell,Urine Occasional /HPF (0-10); Urine Color Yellow (Yellow); Urine Specific Gravity 1.011 (1.001-1.035); Urine Urobilinogen < 2.0 EU/DL (0.2-1.0); WBC,Urine 4 /HPF (0-6)
[2018-09-25 04:31] LABS: Basophils # 0.1 10*3/uL (0.0-0.2); Basophils % 0.8 % (0.0-0.8); Eosinophils # 0.3 10*3/uL (0.0-0.87); Eosinophils % 2.1 % (0.00-10.9); Hematocrit 35.8 VOL% (35.7-47.0); Hemoglobin 11.1 GM/DL (12.0-16.0); Immature Granulocytes % 5.1 %; Immature Granulocytes Absolute 0.78 #; Lymphocytes % 19.7 % (21.3-54.2); Mean Corpuscular Hemoglobin 28 PG (27-34); Mean Corpuscular Volume 91.3 FL (87-102); Mean Platelet Volume 11.8 FL (9.6-12.0); Monocytes # 1.2 10*3/uL (0.11-0.8); Monocytes % 7.7 % (1.7-12.7); NRBC # 0.02 10*3/uL; Neutrophils % 64.6 % (38.7-73.9); Platelet Count 468 T/CUMM (130-400); Red Blood Count 3.92 MC/CUMM (3.8-5.5); White Blood Count 15.4 T/CUMM (4-12)
[2018-09-25 05:01] LABS: Band Neutrophils 1 % (0-10); Lymphocytes 17 % (20-55); Segmented Neutrophils 75 % (50-85); Total Cells Counted 100
[2018-09-25 05:02] LABS: Anisocytosis 1+; Hypochromasia Slight; Platelet Estimate Adequate; Target Cells 1+
[2018-09-25 05:14] LABS: Alanine Aminotransferase 14 U/L (13-56); Albumin 2.2 G/DL (3.4-5.0); Alkaline Phosphatase 144 U/L (45-117); Aspartate Amino Transferase 10 U/L (0-37); Bilirubin,Total < 0.39 MG/DL (0.2-1.0); Blood Urea Nitrogen 11 MG/DL (7-18); Calcium 8.3 MG/DL (8.5-10.1); Glucose 143 MG/DL (74-106); Osmolality,Calculated 286.8 MOS/KG (273-304); Potassium 3.7 MMOL/L (3.5-5.1); Sodium 144 MMOL/L (136-145); Total Protein 6.3 G/DL (6.4-8.3)
[2018-09-25] MEDS: INSULIN REGULAR 100 UNIT/ML SUBCUT SCH ×3 (07:16→18:24)
[2018-09-25] MEDS: ALBUTEROL 2.5 MG/3 ML NEB RESP TX SCH ×2 (08:17→13:20)
[2018-09-25] MEDS: metroNIDAZOLE 500 MG TABLET PO SCH ×2 (09:18→16:35)
[2018-09-25] MEDS: CARVEDILOL 12.5 MG TABLET PO SCH (09:18)
[2018-09-25] MEDS: FENOFIBRATE 145 MG TABLET PO SCH (09:18)
[2018-09-25] MEDS: GLIMEPIRIDE 4 MG TABLET PO SCH (09:18)
[2018-09-25] MEDS: OMEGA 3 ACID ETHYL ESTERS 1 GM CAPSULE PO SCH (09:18)
[2018-09-25] MEDS: ASPIRIN CHEW 81 MG TABLET PO SCH (09:18)
[2018-09-25] MEDS: SIMVASTATIN 20 MG TABLET PO SCH (09:18)
[2018-09-25] MEDS: LISINOPRIL 5 MG TABLET PO SCH (09:18)
[2018-09-25] MEDS: ENOXAPARIN 40 MG/0.4 ML SYRINGE SUBCUT SCH (09:19)
[2018-09-25] MEDS: FUROSEMIDE 40 MG/4 ML VIAL IV SCH ×2 (09:19→16:35)
[2018-09-25] MEDS: PANTOPRAZOLE 40 MG VIAL IV SCH (09:19)
[2018-09-25] MEDS: MEROPENEM 1,000 MG in SODIUM CHLORIDE 0.9% 100 ML IV SCH ×2 (09:26→18:24)
[2018-09-25] MEDS ORDERED: ALPRAZolam 0.5 MG TABLET PO PRN (14:57)
[2018-09-25] MEDS: MULTIVITAMIN (BEROCCA) TABLET PO SCH (16:35)
[2018-09-25] MEDS: FLUCONAZOLE 200 MG TABLET PO SCH (16:36)
[2018-09-25] MEDS: ALBUTEROL/IPRATROPIUM 3 ML NEB RESP TX SCH (16:38)
[2018-09-25] MEDS ORDERED: NYSTATIN 500,000 UNIT/5 ML UDCUP SWISH/SWAL SCH (17:00)
[2018-09-25] MEDS ORDERED: AMITRIPTYLINE 10 MG TABLET PO SCH (21:00)
[2018-09-26] MEDS: CARVEDILOL 12.5 MG TABLET PO SCH ×2 (00:15→09:23)
[2018-09-26] MEDS: metroNIDAZOLE 500 MG TABLET PO SCH ×3 (00:15→15:08)
[2018-09-26] MEDS: CLOTRIMAZOLE 10 MG TROCHE PO SCH ×3 (00:15→15:08)
[2018-09-26] MEDS: MEROPENEM 1,000 MG in SODIUM CHLORIDE 0.9% 100 ML IV SCH ×2 (02:25→09:25)
[2018-09-26] MEDS: INSULIN REGULAR 100 UNIT/ML SUBCUT SCH ×3 (02:30→12:36)
[2018-09-26] MEDS ORDERED: LEVOFLOXACIN INJ 750 MG in PREMIX 1 EACH IV SCH (02:30)
[2018-09-26] MEDS: ALBUTEROL 2.5 MG/3 ML NEB RESP TX SCH ×3 (03:11→13:46)
[2018-09-26] MEDS ORDERED: metOLazone 5 MG TABLET PO SCH (09:00)
[2018-09-26] MEDS: LISINOPRIL 5 MG TABLET PO SCH (09:23)
[2018-09-26] MEDS: GLIMEPIRIDE 4 MG TABLET PO SCH (09:23)
[2018-09-26] MEDS: MULTIVITAMIN (BEROCCA) TABLET PO SCH (09:23)
[2018-09-26] MEDS: OMEGA 3 ACID ETHYL ESTERS 1 GM CAPSULE PO SCH (09:23)
[2018-09-26] MEDS: FENOFIBRATE 145 MG TABLET PO SCH (09:23)
[2018-09-26] MEDS: FLUCONAZOLE 200 MG TABLET PO SCH (09:23)
[2018-09-26] MEDS: SIMVASTATIN 20 MG TABLET PO SCH (09:23)
[2018-09-26] MEDS: ENOXAPARIN 40 MG/0.4 ML SYRINGE SUBCUT SCH (09:24)
[2018-09-26] MEDS: PANTOPRAZOLE 40 MG VIAL IV SCH (09:24)
[2018-09-26] MEDS: FUROSEMIDE 40 MG/4 ML VIAL IV SCH (09:24)
[2018-09-26] MEDS: ASPIRIN CHEW 81 MG TABLET PO SCH (09:33)
[2018-09-26 12:31] VITALS: BP 155/67
[2018-09-26] MEDS ORDERED: POTASSIUM CHLORIDE 20 MEQ TABLET PO SCH (14:30)
[2018-09-26] MEDS ORDERED: DOXYCYCLINE HYCLATE 100 MG CAPSULE PO SCH (21:00)
[2018-09-27] MEDS ORDERED: CHOLECALCIFEROL 1,000 UNIT TABLET PO SCH (09:00)
== END 2018-09-26 15:50 | disposition home or self-care (01) | DRG 291 ==
LOC: N.ED 21:32 → N.EDINP 09-25 01:15 → SUATTDRO 09-25 01:15 → N.TELES 09-25 01:41
PROVIDERS: ADMIT Surgery; ATTEND Hospitalist

== ENCOUNTER 2019-08-03 10:33 | Observation (INO) ==
[2019-08-03] MEDS ORDERED: diphenhydrAMINE 50 MG/1 ML VIAL IV STA (11:10)
[2019-08-03 11:11] LABS: Basophils # 0.1 10*3/uL (0.0-0.2); Basophils % 1.1 % (0.0-0.8); Eosinophils # 0.4 10*3/uL (0.0-0.87); Eosinophils % 3.5 % (0.00-10.9); Hematocrit 39.7 VOL% (35.7-47.0); Hemoglobin 12.3 GM/DL (12.0-16.0); Immature Granulocytes % 0.4 %; Immature Granulocytes Absolute 0.04 #; Lymphocytes % 26.9 % (21.3-54.2); Mean Corpuscular Volume 95.2 FL (87-102); Monocytes % 5.7 % (1.7-12.7); Neutrophils % 62.4 % (38.7-73.9); Platelet Count 375 T/CUMM (130-400); Red Blood Count 4.17 MC/CUMM (3.8-5.5); Red Cell Distribution Width 15.6 % (9.3-17.3); White Blood Count 11.1 T/CUMM (4-12)
[2019-08-03 11:27] LABS: INR 0.9; PT Patient Result 10.2 SECS (9.6-12.2)
[2019-08-03 11:32] LABS: Alanine Aminotransferase 32 U/L (13-56); Albumin 2.9 G/DL (3.4-5.0); Alkaline Phosphatase 88 U/L (45-117); Aspartate Amino Transferase 21 U/L (0-37); Blood Urea Nitrogen 11 MG/DL (7-18); Calcium 8.8 MG/DL (8.5-10.1); Estimated Glom Filtration Rate 86 ML/MIN; Glucose 143 MG/DL (74-106); Osmolality,Calculated 283.1 MOS/KG (273-304); Total Protein 7.1 G/DL (6.4-8.3); Troponin I 0.118 NG/ML (0.00-0.045)
[2019-08-03] MEDS ORDERED: NITROGLYCERIN 2% OINT 1 INCH/GM PACK TOP STA (11:42)
[2019-08-03] MEDS ORDERED: FUROSEMIDE 40 MG/4 ML VIAL IV STA (12:05)
[2019-08-03] MEDS ORDERED: LABETALOL 20 MG/4 ML SYRINGE IV STA (12:33)
[2019-08-03] MEDS ORDERED: ACETAMINOPHEN 325 MG TABLET PO PRN (13:11)
[2019-08-03] MEDS ORDERED: ONDANSETRON 4 MG/2 ML VIAL IV PRN (13:11)
[2019-08-03] MEDS ORDERED: GLUCAGON 1 MG VIAL IM PRN (13:11)
[2019-08-03] MEDS ORDERED: DEXTROSE 10% 250 ML BAG IV PRN (13:11)
[2019-08-03] MEDS ORDERED: DOCUSATE SODIUM 100 MG CAPSULE PO PRN (13:11)
[2019-08-03] MEDS ORDERED: NITROGLYCERIN SL 0.4 MG TABLET SL PRN (13:16)
[2019-08-03 13:45] LABS: Risk Ratio 6.08; Thyroid Stimulating Hormone 1.74 uIU/ml (0.358-3.74); VLDL CHOLESTEROL 39.6 MG/DL
[2019-08-03] MEDS ORDERED: IBUPROFEN 400 MG TABLET PO PRN (14:50)
[2019-08-03] MEDS: INSULIN LISPRO 100 UNIT/ML SUBCUT SCH ×2 (16:28→22:17)
[2019-08-03] MEDS: ALBUTEROL/IPRATROPIUM 3 ML NEB RESP TX SCH (19:27)
[2019-08-03] MEDS ORDERED: ENOXAPARIN 40 MG/0.4 ML SYRINGE SUBCUT SCH (21:00)
[2019-08-03] MEDS: METOPROLOL TARTRATE 25 MG TABLET PO SCH (21:48)
[2019-08-04] MEDS: ALBUTEROL/IPRATROPIUM 3 ML NEB RESP TX SCH ×3 (00:08→14:40)
[2019-08-04] MEDS: FUROSEMIDE 40 MG/4 ML VIAL IV SCH ×2 (00:24→09:10)
[2019-08-04 06:28] LABS: Basophils # 0.1 10*3/uL (0.0-0.2); Basophils % 0.7 % (0.0-0.8); Eosinophils # 0.5 10*3/uL (0.0-0.87); Eosinophils % 5.1 % (0.00-10.9); Hematocrit 40.6 VOL% (35.7-47.0); Hemoglobin 12.7 GM/DL (12.0-16.0); Immature Granulocytes % 0.3 %; Immature Granulocytes Absolute 0.03 #; Lymphocytes # 2.4 10*3/uL (1.4-4.0); Mean Corpuscular HGB Conc 31.3 GM/DL (32-36); Mean Corpuscular Volume 92.7 FL (87-102); Mean Platelet Volume 10.3 FL (9.6-12.0); Monocytes % 6.3 % (1.7-12.7); Neutrophils % 60.6 % (38.7-73.9); Platelet Count 368 T/CUMM (130-400); Red Blood Count 4.38 MC/CUMM (3.8-5.5); Red Cell Distribution Width 15.3 % (9.3-17.3); White Blood Count 8.9 T/CUMM (4-12)
[2019-08-04 06:43] LABS: Calcium 8.6 MG/DL (8.5-10.1); Osmolality,Calculated 282.5 MOS/KG (273-304)
[2019-08-04] MEDS ORDERED: POTASSIUM CHLORIDE 20 MEQ TABLET PO PRN (08:18)
[2019-08-04] MEDS ORDERED: PANTOPRAZOLE 40 MG TABLET PO SCH (09:00)
[2019-08-04] MEDS ORDERED: OMEGA 3 ACID ETHYL ESTERS 1 GM CAPSULE PO SCH (09:00)
[2019-08-04] MEDS ORDERED: ASPIRIN CHEW 81 MG TABLET PO SCH (09:00)
[2019-08-04] MEDS ORDERED: LISINOPRIL 5 MG TABLET PO SCH (09:00)
[2019-08-04] MEDS ORDERED: SIMVASTATIN 20 MG TABLET PO SCH (09:00)
[2019-08-04] MEDS ORDERED: CHOLECALCIFEROL 1,000 UNIT TABLET PO SCH (09:00)
[2019-08-04] MEDS: INSULIN LISPRO 100 UNIT/ML SUBCUT SCH ×2 (09:11→11:53)
[2019-08-04] MEDS: METOPROLOL TARTRATE 25 MG TABLET PO SCH (09:12)
[2019-08-04 12:40] VITALS: BP 129/69
== END 2019-08-04 14:30 | disposition home or self-care (01) ==
LOC: EDUNIT# → EDBD → N.EDINP 10:33 → N.ED 10:33 → N.2W 13:10 → N.TELEN 20:01
PROVIDERS: ADMIT Internal Medicine; ATTEND Internal Medicine

== ENCOUNTER 2019-09-09 10:46 | Inpatient (IN) ==
[2019-09-09] MEDS ORDERED: ONDANSETRON 4 MG/2 ML VIAL IV STA (11:12)
[2019-09-09] MEDS ORDERED: FUROSEMIDE 40 MG/4 ML VIAL IV STA (11:12)
[2019-09-09] MEDS ORDERED: ALBUTEROL/IPRATROPIUM 3 ML NEB RESP TX STA (11:12)
[2019-09-09 12:00] LABS: Basophils # 0.1 10*3/uL (0.0-0.2); Basophils % 0.8 % (0.0-0.8); Eosinophils # 0.3 10*3/uL (0.0-0.87); Eosinophils % 2.1 % (0.00-10.9); Hematocrit 40.9 VOL% (35.7-47.0); Hemoglobin 12.7 GM/DL (12.0-16.0); Immature Granulocytes % 0.5 %; Immature Granulocytes Absolute 0.06 #; Lymphocytes % 24.6 % (21.3-54.2); Mean Corpuscular HGB Conc 31.1 GM/DL (32-36); Mean Corpuscular Volume 93.4 FL (87-102); Mean Platelet Volume 10.2 FL (9.6-12.0); Monocytes % 4.8 % (1.7-12.7); Neutrophils % 67.2 % (38.7-73.9); Platelet Count 352 T/CUMM (130-400); Red Blood Count 4.38 MC/CUMM (3.8-5.5); Red Cell Distribution Width 15.1 % (9.3-17.3); White Blood Count 12.3 T/CUMM (4-12)
[2019-09-09 12:18] LABS: Albumin 2.9 G/DL (3.4-5.0); Bilirubin,Total 0.4 MG/DL (0.2-1.0); Calcium 8.8 MG/DL (8.5-10.1); Osmolality,Calculated 292.3 MOS/KG (273-304); Total Protein 7.1 G/DL (6.4-8.3)
[2019-09-09 12:20] LABS: INR 0.9; PT Patient Result 10.1 SECS (9.6-12.2)
[2019-09-09 12:27] LABS: Barbiturates Screen,Urine Negative (Negative); Benzodiazepines Screen,Urine Negative (Negative); Cannabinoid Screen,Urine Negative (Negative); Opiate Screen,Urine Negative (Negative); Phencyclidine Screen,Urine Negative (Negative)
[2019-09-09 12:33] LABS: Apearance,Urine Slightly Hazy (Clear); Bacteria,Urine Occasional /HPF (Few); Bilirubin,Urine Negative (Negative); Blood, Urine Moderate mg/dL (Negative); Glucose,Urine (UA) 150 mg/dL (Negative); Ketones,Urine Negative (Negative); Mucus,Urine Occasional /LPF (Occasional); Nitrite,Urine Negative (Negative); Protein,Urine 100 MG/DL; RBC,Urine 13 /HPF (0-4); Squamous Epithelial Cell,Urine Occasional /HPF (0-10); Urine Color Yellow (Yellow); Urine Specific Gravity 1.011 (1.001-1.035); Urine Urobilinogen < 2.0 EU/DL (0.2-1.0); WBC,Urine 127 /HPF (0-6)
[2019-09-09] MEDS ORDERED: LEVOFLOXACIN INJ 750 MG in PREMIX 1 EACH IV STA (13:05)
[2019-09-09] MEDS ORDERED: NON-FORMULARY MEDICATION (Albuterol Sulfate 2 PUFF) INH PRN (14:27)
[2019-09-09] MEDS ORDERED: NITROGLYCERIN SL 0.4 MG TABLET SL PRN (14:27)
[2019-09-09] MEDS ORDERED: POTASSIUM CHLORIDE RIDER 10 MEQ in PREMIX 1 EACH IV PRN (14:32)
[2019-09-09] MEDS ORDERED: GLUCAGON 1 MG VIAL IM PRN (14:32)
[2019-09-09] MEDS ORDERED: DEXTROSE 10% 250 ML BAG IV PRN (14:32)
[2019-09-09] MEDS ORDERED: MAGNESIUM SULF RIDER 2 GM in PREMIX 1 EACH IV PRN (14:32)
[2019-09-09] MEDS ORDERED: MAGNESIUM SULF RIDER 4 GM in PREMIX 1 EACH IV PRN (14:32)
[2019-09-09] MEDS ORDERED: guaiFENesin/DM ER 600-30 MG TABLET PO PRN (14:37)
[2019-09-09] MEDS ORDERED: DEXTROSE 50% 25 GM/50 ML VIAL IV PRN (14:37)
[2019-09-09] MEDS ORDERED: ACETAMINOPHEN 325 MG TABLET PO PRN (14:37)
[2019-09-09] MEDS ORDERED: diphenhydrAMINE CAP 25 MG CAPSULE PO PRN (14:37)
[2019-09-09] MEDS ORDERED: traZODone 50 MG TABLET PO PRN (14:37)
[2019-09-09] MEDS ORDERED: ONDANSETRON 4 MG/2 ML VIAL IV PRN (14:37)
[2019-09-09] MEDS ORDERED: NICOTINE 21 MG/24 HR PATCH TRANSDERM PRN (14:37)
[2019-09-09] MEDS ORDERED: PROMETHAZINE 25 MG/1 ML VIAL IM PRN (14:37)
[2019-09-09] MEDS ORDERED: ALBUTEROL 2.5 MG/3 ML NEB RESP TX PRN (14:41)
[2019-09-09] MEDS: FUROSEMIDE 40 MG/4 ML VIAL IV SCH (17:06)
[2019-09-09] MEDS: INSULIN REGULAR 100 UNIT/ML SUBCUT SCH ×2 (17:09→21:38)
[2019-09-09] MEDS: ALBUTEROL/IPRATROPIUM 3 ML NEB RESP TX SCH (18:56)
[2019-09-09] MEDS ORDERED: METOPROLOL TARTRATE 25 MG TABLET PO SCH (21:00)
[2019-09-09] MEDS ORDERED: metFORMIN 500 MG TABLET PO SCH (21:00)
[2019-09-09] MEDS: DOCUSATE SODIUM 100 MG CAPSULE PO SCH (21:02)
[2019-09-09] MEDS: carvediloL 12.5 MG TABLET PO SCH (21:02)
[2019-09-09] MEDS: buPROPion 100 MG TABLET PO SCH (21:02)
[2019-09-10] MEDS: ALBUTEROL/IPRATROPIUM 3 ML NEB RESP TX SCH ×4 (00:28→19:06)
[2019-09-10 05:20] LABS: Calcium 8.6 MG/DL (8.5-10.1); Osmolality,Calculated 287.3 MOS/KG (273-304); Thyroid Stimulating Hormone 0.932 uIU/ml (0.358-3.74)
[2019-09-10] MEDS: buPROPion 100 MG TABLET PO SCH ×2 (08:34→20:39)
[2019-09-10] MEDS: lisinopriL 5 MG TABLET PO SCH (08:34)
[2019-09-10] MEDS: carvediloL 12.5 MG TABLET PO SCH ×2 (08:35→20:39)
[2019-09-10] MEDS: FUROSEMIDE 40 MG/4 ML VIAL IV SCH ×2 (08:35→17:04)
[2019-09-10] MEDS: LEVOFLOXACIN INJ 750 MG in PREMIX 1 EACH IV SCH (08:40)
[2019-09-10] MEDS: ASPIRIN CHEW 81 MG TABLET PO SCH (08:41)
[2019-09-10] MEDS: INSULIN REGULAR 100 UNIT/ML SUBCUT SCH ×4 (08:41→20:46)
[2019-09-10] MEDS: DOCUSATE SODIUM 100 MG CAPSULE PO SCH ×2 (08:42→20:39)
[2019-09-10] MEDS: OMEGA 3 ACID ETHYL ESTERS 1 GM CAPSULE PO SCH (08:42)
[2019-09-10] MEDS: PANTOPRAZOLE 40 MG TABLET PO SCH (08:42)
[2019-09-10] MEDS: CHOLECALCIFEROL 1,000 UNIT TABLET PO SCH (08:42)
[2019-09-10] MEDS ORDERED: SIMVASTATIN 20 MG TABLET PO SCH ×2 (09:00→21:00)
[2019-09-10] MEDS: ZALEPLON 5 MG CAPSULE PO PRN ×2 (22:33→23:37)
[2019-09-11] MEDS: ALBUTEROL/IPRATROPIUM 3 ML NEB RESP TX SCH ×2 (01:00→07:13)
[2019-09-11 05:04] LABS: Basophils # 0.1 10*3/uL (0.0-0.2); Basophils % 0.9 % (0.0-0.8); Eosinophils # 0.3 10*3/uL (0.0-0.87); Eosinophils % 3.4 % (0.00-10.9); Hematocrit 36.8 VOL% (35.7-47.0); Hemoglobin 11.4 GM/DL (12.0-16.0); Immature Granulocytes % 0.4 %; Immature Granulocytes Absolute 0.04 #; Lymphocytes # 2.9 10*3/uL (1.4-4.0); Lymphocytes % 28.8 % (21.3-54.2); Mean Corpuscular Volume 94.4 FL (87-102); Mean Platelet Volume 10.4 FL (9.6-12.0); Monocytes % 9.5 % (1.7-12.7); Platelet Count 293 T/CUMM (130-400); Red Cell Distribution Width 15.2 % (9.3-17.3); White Blood Count 9.9 T/CUMM (4-12)
[2019-09-11 05:28] LABS: Calcium 9.1 MG/DL (8.5-10.1); Osmolality,Calculated 285.5 MOS/KG (273-304)
[2019-09-11] MEDS: LEVOFLOXACIN INJ 750 MG in PREMIX 1 EACH IV SCH (08:03)
[2019-09-11] MEDS: FUROSEMIDE 40 MG/4 ML VIAL IV SCH (08:03)
[2019-09-11] MEDS: OMEGA 3 ACID ETHYL ESTERS 1 GM CAPSULE PO SCH (08:04)
[2019-09-11] MEDS: DOCUSATE SODIUM 100 MG CAPSULE PO SCH (08:04)
[2019-09-11] MEDS: lisinopriL 5 MG TABLET PO SCH (08:04)
[2019-09-11] MEDS: PANTOPRAZOLE 40 MG TABLET PO SCH (08:04)
[2019-09-11] MEDS: CHOLECALCIFEROL 1,000 UNIT TABLET PO SCH (08:04)
[2019-09-11] MEDS: buPROPion 100 MG TABLET PO SCH (08:04)
[2019-09-11] MEDS: ASPIRIN CHEW 81 MG TABLET PO SCH (08:04)
[2019-09-11] MEDS: carvediloL 12.5 MG TABLET PO SCH (08:05)
[2019-09-11] MEDS: INSULIN REGULAR 100 UNIT/ML SUBCUT SCH (08:20)
[2019-09-11 08:41] VITALS: BP 158/78
[2019-09-11] MEDS ORDERED: FUROSEMIDE 40 MG TABLET PO SCH (16:00)
== END 2019-09-11 10:30 | disposition home or self-care (01) | DRG 194 ==
LOC: N.ED 10:46 → N.EDINP 14:36 → N.5E 15:36
PROVIDERS: ADMIT Internal Medicine; ATTEND Internal Medicine

== ENCOUNTER 2021-12-18 07:59 | Inpatient (IN) ==
[2021-12-18] MEDS ORDERED: ALBUTEROL/IPRATROPIUM 3 ML NEB RESP TX STA (08:41)
[2021-12-18] MEDS ORDERED: ONDANSETRON ODT 4 MG TABLET PO STA (08:41)
[2021-12-18] MEDS ORDERED: methylPREDNISolone SOD SUC 125 MG/2 ML VIAL IV STA (08:41)
[2021-12-18] MEDS ORDERED: FUROSEMIDE 100 MG/10 ML VIAL IV STA (08:41)
[2021-12-18] MEDS ORDERED: hydrALAZINE 20 MG/1 ML VIAL IV STA (08:46)
[2021-12-18] MEDS ORDERED: METOPROLOL TARTRATE 5 MG/5 ML VIAL IV STA (08:46)
[2021-12-18 08:48] LABS: Basophils # 0.1 10*3/uL (0.0-0.2); Basophils % 0.6 % (0.0-0.8); Eosinophils # 0.1 10*3/uL (0.0-0.87); Eosinophils % 0.6 % (0.00-10.9); Hematocrit 41.3 VOL% (35.7-47.0); Hemoglobin 12.5 GM/DL (12.0-16.0); Immature Granulocytes % 0.9 %; Immature Granulocytes Absolute 0.15 #; Lymphocytes % 25.5 % (21.3-54.2); Mean Corpuscular HGB Conc 30.3 GM/DL (32-36); Mean Corpuscular Volume 98.1 FL (87-102); Mean Platelet Volume 10.4 FL (9.6-12.0); Monocytes # 0.4 10*3/uL (0.11-0.8); Monocytes % 2.5 % (1.7-12.7); Neutrophils % 69.9 % (38.7-73.9); Platelet Count 505 T/CUMM (130-400); Red Blood Count 4.21 MC/CUMM (3.8-5.5); Red Cell Distribution Width 14.5 % (9.3-17.3); White Blood Count 15.8 T/CUMM (4-12)
[2021-12-18 09:07] LABS: Eosinophils 3 % (0-10); Lymphocytes 26 % (20-55); Total Cells Counted 100
[2021-12-18 09:08] LABS: Microcytosis Slight
[2021-12-18 09:16] LABS: Alanine Aminotransferase 69 U/L (13-56); Albumin 3.2 G/DL (3.4-5.0); Alkaline Phosphatase 41 U/L (45-117); Aspartate Amino Transferase 105 U/L (0-37); Bilirubin,Total < 0.39 MG/DL (0.20-1.00); Blood Urea Nitrogen 25 MG/DL (7-18); Calcium 9.3 MG/DL (8.5-10.1); Carbon Dioxide 21 MMOL/L (21-32); Chloride 108 MMOL/L (98-107); Glucose 434 MG/DL (74-106); Osmolality,Calculated 297.7 MOS/KG (273-304); Potassium 4.6 MMOL/L (3.5-5.1); Sodium 138 MMOL/L (136-145); Total Protein 7.5 G/DL (6.4-8.2)
[2021-12-18 09:27] LABS: Arterial Base Excess iSTAT -2 MMOL/L (-2.5-2.5); Arterial Bicarbonate iSTAT 24.9 MMOL/L (20-26); Arterial O2 Saturation iSTAT 91 % (95-100); Arterial PCO2 iSTAT 52 MM HG (35-48); Arterial PO2 iSTAT 69 MM HG (80-95); Arterial Total CO2 iSTAT 26 MMO/L (23-27)
[2021-12-18] MEDS: NITROGLYCERIN DRIP 50 MG/250 ML BOTTLE IV SCH (09:50)
[2021-12-18] MEDS ORDERED: ALBUTEROL 2.5 MG/3 ML NEB RESP TX PRN ×2 (10:07→11:00)
[2021-12-18] MEDS ORDERED: GLUCAGON 1 MG VIAL IM PRN (10:08)
[2021-12-18] MEDS ORDERED: ONDANSETRON 4 MG/2 ML VIAL IV PRN (10:08)
[2021-12-18] MEDS ORDERED: ALPRAZolam 0.5 MG TABLET PO PRN (10:10)
[2021-12-18] MEDS ORDERED: DEXTROSE 10% 250 ML BAG IV PRN (10:12)
[2021-12-18 10:18] LABS: Bacteria,Urine Occasional /HPF (Few); Hyaline Casts,Urine 6 /LPF (0-3); Mucus,Urine Occasional /LPF (Occasional); RBC,Urine 1 /HPF (0-4); Squamous Epithelial Cell,Urine Occasional /HPF (0-10)
[2021-12-18 10:19] LABS: Bilirubin,Urine Negative (Negative); Blood, Urine Negative (Negative); Glucose,Urine (UA) >=1000 mg/dL (Negative); Ketones,Urine Negative (Negative); Nitrite,Urine Negative (Negative); Protein,Urine 100 mg/dL (Negative); Urine Appearance Clear (Clear); Urine Color Yellow (Yellow); Urine Urobilinogen 0.2 eU/dL (<2.0)
[2021-12-18] MEDS ORDERED: ALBUTEROL 2.5 MG/3 ML NEB RESP TX SCH (10:22)
[2021-12-18 10:23] LABS: Barbiturates Screen,Urine Negative (Negative); Benzodiazepines Screen,Urine Positive (Negative); Cannabinoid Screen,Urine Negative (Negative); Opiate Screen,Urine Negative (Negative); Phencyclidine Screen,Urine Negative (Negative)
[2021-12-18] MEDS ORDERED: MORPHINE 2 MG/1 ML SYRINGE IV STA (10:30)
[2021-12-18] MEDS ORDERED: ENOXAPARIN 40 MG/0.4 ML SYRINGE SUBCUT SCH (10:30)
[2021-12-18] MEDS: PANTOPRAZOLE 40 MG TABLET PO SCH (10:49)
[2021-12-18] MEDS ORDERED: MORPHINE 2 MG/1 ML SYRINGE IV PRN (11:17)
[2021-12-18] MEDS: INSULIN LISPRO 100 UNIT/ML SUBCUT SCH ×3 (12:58→20:29)
[2021-12-18] MEDS: FUROSEMIDE 40 MG/4 ML VIAL IV SCH (16:25)
[2021-12-18] MEDS: carvediloL 12.5 MG TABLET PO SCH (20:28)
[2021-12-18] MEDS: metFORMIN 500 MG TABLET PO SCH (20:28)
[2021-12-18] MEDS: INSULIN GLARGINE 100 UNIT/ML SUBCUT SCH (20:30)
[2021-12-19 03:36] LABS: Basophils % 0.3 % (0.0-0.8); Eosinophils % 0.2 % (0.00-10.9); Hematocrit 33.8 VOL% (35.7-47.0); Immature Granulocytes % 0.3 %; Immature Granulocytes Absolute 0.03 #; Lymphocytes # 2.4 10*3/uL (1.4-4.0); Lymphocytes % 22.9 % (21.3-54.2); Mean Corpuscular HGB Conc 30.5 GM/DL (32-36); Mean Corpuscular Volume 96.3 FL (87-102); Mean Platelet Volume 10.3 FL (9.6-12.0); Monocytes # 0.4 10*3/uL (0.11-0.8); Neutrophils % 72.3 % (38.7-73.9); Red Blood Count 3.51 MC/CUMM (3.8-5.5); Red Cell Distribution Width 14.4 % (9.3-17.3)
[2021-12-19 03:37] LABS: Hemoglobin 10.3 GM/DL (12.0-16.0); Platelet Count 313 T/CUMM (130-400); White Blood Count 10.4 T/CUMM (4-12)
[2021-12-19 03:48] LABS: Albumin 2.9 G/DL (3.4-5.0); Bilirubin,Total 0.4 MG/DL (0.20-1.00); Calcium 8.5 MG/DL (8.5-10.1); Osmolality,Calculated 291.8 MOS/KG (273-304); Potassium 3.9 MMOL/L (3.5-5.1); Total Protein 6.4 G/DL (6.4-8.2)
[2021-12-19] MEDS: PANTOPRAZOLE 40 MG TABLET PO SCH (05:35)
[2021-12-19] MEDS ORDERED: PANTOPRAZOLE 40 MG TABLET PO SCH (06:30)
[2021-12-19 09:16] LABS: High Sensitive Troponin I* 96755.4 ng/L (0-54)
[2021-12-19] MEDS: hydroCHLOROthiazide 25 MG TABLET PO SCH (09:21)
[2021-12-19] MEDS: carvediloL 12.5 MG TABLET PO SCH ×2 (09:22→20:09)
[2021-12-19] MEDS: OMEGA 3 ACID ETHYL ESTERS 1 GM CAPSULE PO SCH (09:22)
[2021-12-19] MEDS: glipiZIDE 10 MG TABLET PO SCH (09:22)
[2021-12-19] MEDS: metFORMIN 500 MG TABLET PO SCH ×2 (09:22→20:10)
[2021-12-19] MEDS: lisinopriL 10 MG TABLET PO SCH (09:23)
[2021-12-19] MEDS: FENOFIBRATE 145 MG TABLET PO SCH (09:23)
[2021-12-19] MEDS: ASPIRIN CHEW 81 MG TABLET PO SCH (09:23)
[2021-12-19] MEDS: FUROSEMIDE 40 MG/4 ML VIAL IV SCH ×2 (09:25→16:06)
[2021-12-19] MEDS: INSULIN LISPRO 100 UNIT/ML SUBCUT SCH ×4 (09:26→20:09)
[2021-12-19] MEDS ORDERED: ENOXAPARIN 60 MG/0.6 ML SYRINGE SUBCUT ONE (10:04)
[2021-12-19] MEDS ORDERED: ENOXAPARIN 100 MG/ML SYRINGE SUBCUT SCH (10:30)
[2021-12-19] MEDS: NITROGLYCERIN DRIP 50 MG/250 ML BOTTLE IV SCH (11:23)
[2021-12-19] MEDS: ENOXAPARIN 100 MG/ML SYRINGE SUBCUT SCH (20:08)
[2021-12-19] MEDS: SIMVASTATIN 20 MG TABLET PO SCH (20:08)
[2021-12-19] MEDS: INSULIN GLARGINE 100 UNIT/ML SUBCUT SCH (20:09)
[2021-12-20 05:28] LABS: Basophils % 0.5 % (0.0-0.8); Eosinophils # 0.2 10*3/uL (0.0-0.87); Eosinophils % 2.7 % (0.00-10.9); Hematocrit 38.1 VOL% (35.7-47.0); Hemoglobin 11.7 GM/DL (12.0-16.0); Immature Granulocytes % 0.4 %; Immature Granulocytes Absolute 0.03 #; Lymphocytes # 2.5 10*3/uL (1.4-4.0); Lymphocytes % 31.8 % (21.3-54.2); Mean Corpuscular HGB Conc 30.7 GM/DL (32-36); Mean Corpuscular Volume 96.7 FL (87-102); Mean Platelet Volume 11.4 FL (9.6-12.0); Monocytes # 0.3 10*3/uL (0.11-0.8); Monocytes % 3.5 % (1.7-12.7); Neutrophils % 61.1 % (38.7-73.9); Platelet Count 315 T/CUMM (130-400); Red Blood Count 3.94 MC/CUMM (3.8-5.5); Red Cell Distribution Width 14.1 % (9.3-17.3); White Blood Count 7.8 T/CUMM (4-12)
[2021-12-20 05:46] LABS: Albumin 3.1 G/DL (3.4-5.0); Bilirubin,Total 0.4 MG/DL (0.20-1.00); Calcium 9.6 MG/DL (8.5-10.1); Osmolality,Calculated 287.3 MOS/KG (273-304); Potassium 3.8 MMOL/L (3.5-5.1); Total Protein 7.1 G/DL (6.4-8.2)
[2021-12-20 06:08] LABS: High Sensitive Troponin I* 52026.6 ng/L (0-54)
[2021-12-20] MEDS: PANTOPRAZOLE 40 MG TABLET PO SCH (06:18)
[2021-12-20] MEDS: INSULIN LISPRO 100 UNIT/ML SUBCUT SCH ×4 (07:26→20:02)
[2021-12-20] MEDS: FUROSEMIDE 40 MG/4 ML VIAL IV SCH ×2 (07:31→16:39)
[2021-12-20] MEDS: hydroCHLOROthiazide 25 MG TABLET PO SCH (08:22)
[2021-12-20] MEDS: carvediloL 12.5 MG TABLET PO SCH ×2 (08:23→20:02)
[2021-12-20] MEDS: ASPIRIN CHEW 81 MG TABLET PO SCH (08:23)
[2021-12-20] MEDS: OMEGA 3 ACID ETHYL ESTERS 1 GM CAPSULE PO SCH (08:23)
[2021-12-20] MEDS: metFORMIN 500 MG TABLET PO SCH ×2 (08:23→20:02)
[2021-12-20] MEDS: ENOXAPARIN 100 MG/ML SYRINGE SUBCUT SCH ×2 (08:23→20:02)
[2021-12-20] MEDS: FENOFIBRATE 145 MG TABLET PO SCH (08:23)
[2021-12-20] MEDS: glipiZIDE 10 MG TABLET PO SCH (08:23)
[2021-12-20] MEDS: lisinopriL 10 MG TABLET PO SCH (08:23)
[2021-12-20] MEDS: NICOTINE 21 MG/24 HR PATCH TRANSDERM SCH ×2 (08:34→17:53)
[2021-12-20] MEDS: NITROGLYCERIN DRIP 50 MG/250 ML BOTTLE IV SCH (08:34)
[2021-12-20] MEDS ORDERED: POTASSIUM CHLORIDE 20 MEQ TABLET PO ONE (11:00)
[2021-12-20] MEDS: SIMVASTATIN 20 MG TABLET PO SCH (20:02)
[2021-12-20] MEDS: INSULIN GLARGINE 100 UNIT/ML SUBCUT SCH (20:02)
[2021-12-21 04:19] VITALS: BP 142/79
[2021-12-21 04:20] LABS: Basophils # 0.1 10*3/uL (0.0-0.2); Basophils % 0.9 % (0.0-0.8); Eosinophils # 0.2 10*3/uL (0.0-0.87); Eosinophils % 3.7 % (0.00-10.9); Hemoglobin 12.6 GM/DL (12.0-16.0); Immature Granulocytes % 0.2 %; Immature Granulocytes Absolute 0.01 #; Lymphocytes # 2.5 10*3/uL (1.4-4.0); Lymphocytes % 39.5 % (21.3-54.2); Mean Corpuscular HGB Conc 30.7 GM/DL (32-36); Mean Platelet Volume 10.2 FL (9.6-12.0); Monocytes # 0.3 10*3/uL (0.11-0.8); Monocytes % 4.4 % (1.7-12.7); Neutrophils % 51.3 % (38.7-73.9); Platelet Count 320 T/CUMM (130-400); Red Blood Count 4.27 MC/CUMM (3.8-5.5); White Blood Count 6.4 T/CUMM (4-12)
[2021-12-21 04:42] LABS: Albumin 3.2 G/DL (3.4-5.0); Bilirubin,Total 0.4 MG/DL (0.20-1.00); Calcium 9.9 MG/DL (8.5-10.1); Osmolality,Calculated 282.8 MOS/KG (273-304); Potassium 3.7 MMOL/L (3.5-5.1); Total Protein 7.5 G/DL (6.4-8.2)
[2021-12-21] MEDS: PANTOPRAZOLE 40 MG TABLET PO SCH (05:59)
[2021-12-21] MEDS: ASPIRIN CHEW 81 MG TABLET PO SCH (08:07)
[2021-12-21] MEDS: hydroCHLOROthiazide 25 MG TABLET PO SCH (08:07)
[2021-12-21] MEDS: lisinopriL 10 MG TABLET PO SCH (08:07)
[2021-12-21] MEDS: NICOTINE 21 MG/24 HR PATCH TRANSDERM SCH (08:07)
[2021-12-21] MEDS: carvediloL 12.5 MG TABLET PO SCH (08:07)
[2021-12-21] MEDS: metFORMIN 500 MG TABLET PO SCH (08:07)
[2021-12-21] MEDS: FENOFIBRATE 145 MG TABLET PO SCH (08:07)
[2021-12-21] MEDS: OMEGA 3 ACID ETHYL ESTERS 1 GM CAPSULE PO SCH (08:07)
[2021-12-21] MEDS: FUROSEMIDE 40 MG/4 ML VIAL IV SCH (08:08)
[2021-12-21] MEDS: glipiZIDE 10 MG TABLET PO SCH (08:08)
[2021-12-21] MEDS: ENOXAPARIN 100 MG/ML SYRINGE SUBCUT SCH (08:33)
[2021-12-21] MEDS: INSULIN LISPRO 100 UNIT/ML SUBCUT SCH (08:33)
== END 2021-12-21 12:05 | disposition home or self-care (01) | DRG 194 ==
LOC: N.ED 07:59 → N.ICU 10:07 → SUATTDRO 10:07 → N.ICU 11:00
PROVIDERS: ADMIT Internal Medicine; ATTEND Family Medicine

== ENCOUNTER 2022-02-14 06:10 | Inpatient (IN) ==
[~2022-02-14 06:10] MED LIST: ASPIRIN 325 MG TABLET PO ONE; DIAZEPAM 5 MG TABLET PO ONE; MAGNESIUM SULF RIDER 2 GM/50 ML PREMIX IV PRN; POTASSIUM CHLORIDE RIDER 10 MEQ/100 ML PREMIX IV PRN; diphenhydrAMINE CAP 50 MG CAPSULE PO ONE
[2022-02-14 06:43] VITALS: BP 135/65
[2022-02-14] MEDS ORDERED: DIAZEPAM 5 MG TABLET ONE (06:44)
[2022-02-14] MEDS ORDERED: diphenhydrAMINE CAP 50 MG CAPSULE ONE (06:44)
[2022-02-14] MEDS ORDERED: ASPIRIN 325 MG TABLET ONE (06:44)
[2022-02-14] MEDS: SODIUM CHLORIDE 0.9% 1,000 ML IV SCH ×2 (06:46→16:03)
[2022-02-14 06:48] LABS: Basophils # 0.1 10*3/uL (0.0-0.2); Basophils % 0.8 % (0.0-0.8); Eosinophils # 0.2 10*3/uL (0.0-0.87); Eosinophils % 2.2 % (0.00-10.9); Hematocrit 39.4 VOL% (35.7-47.0); Hemoglobin 12.6 GM/DL (12.0-16.0); Immature Granulocytes % 0.5 %; Immature Granulocytes Absolute 0.05 #; Lymphocytes % 28.2 % (21.3-54.2); Mean Corpuscular Volume 94.7 FL (87-102); Mean Platelet Volume 10.1 FL (9.6-12.0); Monocytes % 9.2 % (1.7-12.7); Neutrophils % 59.1 % (38.7-73.9); Platelet Count 426 T/CUMM (130-400); Red Blood Count 4.16 MC/CUMM (3.8-5.5); Red Cell Distribution Width 13.7 % (9.3-17.3); White Blood Count 10.8 T/CUMM (4-12)
[2022-02-14 07:05] LABS: Calcium 10.5 MG/DL (8.5-10.1); Osmolality,Calculated 300.4 MOS/KG (273-304); Potassium 4.6 MMOL/L (3.5-5.1)
[2022-02-14] MEDS ORDERED: FAMOTIDINE 20 MG/2 ML VIAL IV ONE ×2 (07:16→07:20)
[2022-02-14] MEDS ORDERED: methylPREDNISolone SOD SUC 125 MG/2 ML VIAL IV ONE (07:16)
[2022-02-14] MEDS ORDERED: methylPREDNISolone SOD SUC 125 MG/2 ML VIAL ONE (07:19)
[2022-02-14] MEDS ORDERED: HYDROmorphone 1 MG/1 ML SYRINGE ONE (07:26)
[2022-02-14] MEDS ORDERED: MIDAZOLAM 2 MG/2 ML VIAL ONE (07:27)
[2022-02-14] MEDS ORDERED: HEPARIN 5,000 UNIT/1 ML VIAL ONE ×6 (08:06→09:42)
[2022-02-14] MEDS ORDERED: TIROFIBAN 5,000 MCG/100 ML PREMIX IV ONE ×2 (09:19→10:16)
[2022-02-14] MEDS ORDERED: TIROFIBAN 5,000 MCG/100 ML PREMIX IV SCH (09:23)
[2022-02-14] MEDS ORDERED: EPINEPHrine 1 MG/10 ML SYRINGE IV ONE ×3 (09:23→13:07)
[2022-02-14] MEDS ORDERED: SODIUM BICARBONATE 50 MEQ/50 ML SYRINGE IV ONE ×2 (09:25→12:16)
[2022-02-14] MEDS ORDERED: EPINEPHrine 1 MG/ML VIAL IV ONE (09:30)
[2022-02-14] MEDS ORDERED: AMIODARONE 150 MG/3 ML VIAL IV ONE ×2 (09:30→12:16)
[2022-02-14] MEDS ORDERED: CALCIUM CHLORIDE 1,000 MG/10 ML SYRINGE IV ONE (09:32)
[2022-02-14] MEDS ORDERED: ATROPINE 1 MG/10 ML SYRINGE IV ONE (09:36)
[2022-02-14] MEDS ORDERED: MAGNESIUM SULFATE 1 GM/2 ML VIAL IV ONE (09:41)
[2022-02-14] MEDS ORDERED: HEPARIN/NACL 0.9% 2 UNITS/ML 1,000 UNIT/500 ML BAG IV ONE (09:51)
[2022-02-14] MEDS ORDERED: SUCCINYLCHOLINE 200 MG/10 ML VIAL ONE (10:00)
[2022-02-14] MEDS ORDERED: ETOMIDATE 40 MG/20 ML VIAL IV ONE (10:00)
[2022-02-14 10:11] LABS: ABG Base Excess -17.7 MMOL/L (-2.5-2.5); ABG HCO3 11.2 MMOL/L (20-26); ABG PCO2 48.2 MM HG (35-48); ABG TCO2 12.5 MMOL/L (23-27)
[2022-02-14 10:13] LABS: ABG PH 7.031 (7.35-7.45)
[2022-02-14] MEDS ORDERED: DOPamine 800 MG/250 ML PREMIX IV ONE (10:28)
[2022-02-14] MEDS ORDERED: NITROPRUSSIDE 50 MG/2 ML VIAL ONE (10:40)
[2022-02-14 10:51] LABS: ABG Base Excess -6.1 MMOL/L (-2.5-2.5); ABG HCO3 19.4 MMOL/L (20-26); ABG Oxygen Saturation 99.3 % (95-100); ABG PCO2 40.1 MM HG (35-48); ABG PH 7.302 (7.35-7.45); ABG TCO2 18.9 MMOL/L (23-27)
[2022-02-14 10:52] LABS: Risk Ratio 5.64; VLDL Cholesterol 54.6 MG/DL
[2022-02-14] MEDS ORDERED: NOREPINEPHRINE 4 MG/4 ML VIAL IV ONE ×2 (10:52→13:04)
[2022-02-14] MEDS ORDERED: ROSUVASTATIN 20 MG TABLET PO ONE (11:07)
[2022-02-14] MEDS ORDERED: VANCOMYCIN 1,000 MG VIAL ONE (11:08)
[2022-02-14] MEDS ORDERED: TICAGRELOR 90 MG TABLET PO ONE (11:17)
[2022-02-14] MEDS ORDERED: SODIUM CHLORIDE 0.9% 2,000 ML IV ONE (11:40)
[2022-02-14] MEDS ORDERED: DOPamine 800 MG/250 ML PREMIX IV PRN (11:40)
[2022-02-14] MEDS ORDERED: AMIODARONE INJ 450 MG in DEXTROSE 5% 241 ML IV SCH (11:40)
[2022-02-14] MEDS ORDERED: NOREPINEPHRINE 8 MG in SODIUM CHLORIDE 0.9% 242 ML IV PRN (11:40)
[2022-02-14 12:31] LABS: Arterial Base Excess iSTAT -7 MMOL/L (-2.5-2.5); Arterial O2 Saturation iSTAT 99 % (95-100); Arterial PCO2 iSTAT 35 MM HG (35-48); Arterial PO2 iSTAT 147 MM HG (80-95); Arterial Total CO2 iSTAT 19 MMO/L (23-27); Arterial pH iSTAT 7.325 (7.35-7.45)
[2022-02-14] MEDS ORDERED: SODIUM CHLORIDE 0.9% 1,000 ML IV PRN ×2 (12:36→12:53)
[2022-02-14 12:42] LABS: Basophils # 0.1 10*3/uL (0.0-0.2); Basophils % 0.3 % (0.0-0.8); Eosinophils # 0.1 10*3/uL (0.0-0.87); Eosinophils % 0.6 % (0.00-10.9); Hematocrit 21.3 VOL% (35.7-47.0); Hemoglobin 6.5 GM/DL (12.0-16.0); Immature Granulocytes % 1.6 %; Immature Granulocytes Absolute 0.28 #; Lymphocytes # 2.9 10*3/uL (1.4-4.0); Lymphocytes % 17.2 % (21.3-54.2); Mean Corpuscular HGB Conc 30.5 GM/DL (32-36); Mean Corpuscular Volume 100.5 FL (87-102); Mean Platelet Volume 10.9 FL (9.6-12.0); Monocytes # 0.4 10*3/uL (0.11-0.8); Monocytes % 2.4 % (1.7-12.7); Neutrophils % 77.9 % (38.7-73.9); Platelet Count 283 T/CUMM (130-400); Red Blood Count 2.12 MC/CUMM (3.8-5.5); Red Cell Distribution Width 13.8 % (9.3-17.3)
[2022-02-14 13:01] LABS: CKMB % 6.46 %; Osmolality,Calculated 339.3 MOS/KG (273-304); Potassium 5.2 MMOL/L (3.5-5.1)
[2022-02-14 13:03] LABS: High Sensitive Troponin I* 4052.3 ng/L (0-54)
[2022-02-14 13:08] LABS: Alanine Aminotransferase 157 U/L (13-56); Albumin 1.7 G/DL (3.4-5.0); Alkaline Phosphatase 18 U/L (45-117); Aspartate Amino Transferase 256 U/L (0-37); Bilirubin,Total < 0.39 MG/DL (0.20-1.00); Blood Urea Nitrogen 57 MG/DL (7-18); Carbon Dioxide 20 MMOL/L (21-32); Chloride 117 MMOL/L (98-107); Osmolality,Calculated 339.3 MOS/KG (273-304); Potassium 5.2 MMOL/L (3.5-5.1); Sodium 148 MMOL/L (136-145); Total Protein 3.7 G/DL (6.4-8.2)
[2022-02-14 13:13] LABS: Glucose 646 MG/DL (74-106)
[2022-02-14] MEDS ORDERED: LIDOCAINE 100 MG/5 ML SYRINGE IV ONE (13:13)
[2022-02-15] MEDS ORDERED: FENOFIBRATE 145 MG TABLET PO SCH (09:00)
[2022-02-15] MEDS ORDERED: ASPIRIN CHEW 81 MG TABLET PO SCH (09:00)
[2022-02-15] MEDS ORDERED: ROSUVASTATIN 20 MG TABLET PO SCH (09:00)
== END 2022-02-14 13:20 | disposition expired | DRG 178 ==
LOC: N.CL 06:10 → N.ICU 11:21
PROVIDERS: ADMIT Internal Medicine Cardiovascular Disease; ATTEND Internal Medicine Cardiovascular Disease